=== PATIENT | male | born 1970 | race Caucasian/White ===

== ENCOUNTER 2018-06-16 06:11 | Emergency (ER) | payer SELFPAY ==
[2018-06-16 06:14] VITALS: BP 129/79; PULSE 85; RESP 16; TEMP 37; O2SAT 97
--- NOTE | 2018-06-16 06:31 | ED.GENADUL_ITS ---
Discharge Plan Disposition Patient Disposition: HOME Condition: Good Discharge Details Chief Complaint: RespSymp Clinical Impression: Viral URI Primary Care Provider: None,None ED Provider: Yuri Contreras Home Meds and New Rx's Prescriptions: New benzonatate [Tessalon Perles] 100 mg capsule 100 mg PO TID PRN (Reason: cough) Qty: 30 RF: 0 loratadine 10 mg capsule 10 mg PO DAILY Qty: 10 RF: 0 No Action ibuprofen 600 MG tablet 600 mg PO Q6H PRN (Reason: Pain) Qty: 15 RF: 0 Discharge Instructions Instructions: Upper Respiratory Infection (ED) Additional Instructions: If you notice any worsening of your symptoms, or any new symptoms such as vomiting, diarrhea, fever, chills, shortness of breath, chest pain, numbness, weakness, or fainting , please return immediately to the emergency department for reevaluation. Please follow up with your primary care provider as soon as possible for reassessment and reevaluation. As always, it was a pleasure participating in your medical care today. Stand Alone Forms: Work Release Medical Decision Making This is a pleasant 48-year-old male who presents with 1 day of mild cough, congestion, and runny nose. He has no fever or chills. Physical exam demonstrates no signs of significant pneumonia, no hypoxemia, no respiratory crackles. Lung sounds are encouraging, vital signs are reassuring. No clinical evidence of meningitis or other significant abnormality. With no signs of sign ificant or concerning illness, I feel that the patient most likely has mild viral upper respiratory infection. A long discussion with him regarding the importance of smoking cessation. We discussed red flags for which to return, the importance of fluids, Tylenol Motrin, to be taken as needed. I have extensively reviewed the treatment plan and discharge instructions with the patient. I have addressed all patient concerns at this time. The patient was made aware of what symptoms to monitor for that would warrant a return to the emergency department. Discussed the plan with the patient, they demonstrate verbal understanding and agreement with our assessment and plan at this time. HPI General Date/Time Provider Initiated Documentation: 06/16/18 06:22 . HPI Narrative: This is a 48-year-old male who presents for 1 day of cough, runny nose, congestion. The patient smokes 18 cigarettes/day. He has been doing so for quite some time. Patient's symptoms began yesterday, he denies any fever, chills, vomiting, diarrhea, chest pain or shortness of breath. He denies any other complaints, or modifying factors. He denies any other sick contacts. Related Data Home Medications Medication Instructions Recorded Confirmed ibuprofen 600 mg PO Q6H PRN #15 tablet 12/02/16 06/16/18 benzonatate [Tessalon Perles] 100 mg PO TID PRN #30 cap 06/16/18 loratadine 10 mg PO DAILY #10 cap 06/16/18 Previous Rx's Medication Instructions Recorded ibuprofen 600 mg PO Q6H PRN #15 tablet 12/02/16 benzonatate [Tessalon Perles] 100 mg PO TID PRN #30 cap 06/16/18 loratadine 10 mg PO DAILY #10 cap 06/16/18 Allergies Allergy/AdvReac Type Severity Reaction Status Date / Time Penicillins Allergy Severe Unverified 06/16/18 06:18 vinegar Allergy Severe hives/nause Uncoded 06/16/18 06:18 a General Stated Complaint: RespSymp RADHA: 4 Review of Systems Review of Systems All systems reviewed & are unremarkable except as noted in HPI and below PFSH Social History Smoking and Tabacco status: Current every day Exam Narrative Exam Narrative: 1.Const: Well-nourished, Well-developed, appearing stated age 2.Eyes: PERRL, no conjunctival injection, and symmetrical lids. 3.ENT: Atraumatic external nose and ears. Moist MM. Neck: Symmetric, trachea midline, No thyromegaly. No significant erythema in the posterior oropharynx. Patient demonstrates good movement of cervical neck. There is no nuchal rigidity, no nuchal tenderness. Patient is able to flex the neck without any difficulty or significant pain. Negative Kernig's and Brudzinski sign. 4.CVS: +S1/S2, No murmurs or gallops. Peripheral pulses 2+ and equal in all extremities. Brisk capillary refill in all extremities. 5.RESP: Unlabored respiratory effort. Clear to auscultation bilaterally. No wheezes rales or rhonchi 6.GI: Soft, Nontender/Nondistended, No hepatosplenomegaly. No guarding or rebound. 7.MSK: Normocephalic/Atraumatic, Extremities w/o deformity or ttp No cyanosis or clubbing, Normal movement of all extremities 8.Skin: Warm, Dry. No rashes or lesions. 9.Neuro: brick burner II-XII grossly intact. Sensation grossly intact, no focal neurologic deficits. 10.Psych: (AAO) x3. Appropriate mood and affect Course Vital Signs Temperature 37.0 C 06/16/18 06:14 Pulse 85 06/16/18 06:14 Respiratory Rate 16 06/16/18 06:14 Blood Pressure 129/79 06/16/18 06:14 Pulse Oximetry 97 06/16/18 06:14 Temperature 37.0 C 06/16/18 06:14 Temperature Source Skin 06/16/18 06:14 Pulse 85 06/16/18 06:14 Respiratory Rate 16 06/16/18 06:14 Respiratory Effort Non-Labored 06/16/18 06:19 Blood Pressure 129/79 06/16/18 06:14 Pulse Oximetry 97 06/16/18 06:14 Pain Level 4 06/16/18 06:14
== END 2018-06-16 06:37 | disposition home or self-care (01) ==
LOC: ER 06:42
PROVIDERS: Emergency Provider Student in an Organized Health Care Education/Training Program
DX: J06.9 Acute upper respiratory infection, unspecified (principal); F17.210 Nicotine dependence, cigarettes, uncomplicated
CPT/HCPCS: 99283

== ENCOUNTER 2018-11-11 19:52 | Emergency (ER) | payer SELFPAY ==
[2018-11-11 19:58] VITALS: BP 104/70; PULSE 82; RESP 18; TEMP 36.9; O2SAT 98
--- NOTE | 2018-11-11 20:01 | W.ED.GENAD ---
Discharge Plan Disposition Patient Disposition: HOME Condition: Good Discharge Details Chief Complaint: EyeProblem Clinical Impression: Foreign body of left eye Primary Care Provider: None,None ED Provider: David Cox [place] Meds and New Rx's Prescriptions: New erythromycin 5 mg/gram (0.5 %) ointment 0.5 inch OP QID Qty: 3.5 RF: 0 Discharge Instructions Instructions: Eye Foreign Body (ED) Additional Instructions: Most of the metallic foreign body and rust ring has been removed. There is minimal residual rust ring. Please use antibiotic ointment as directed 4 times a day. [facility] or Friday before the weekend. Return to ED if you develop increasing eye pain, decreased vision, increased periorbital swelling. Referrals: [facility] [Outside] Discharge Data Discharge Date/Time-TO BE ENTERED AT DEPARTURE: 11/11/18 20:43 Medical Decision Making Small piece of metal seen just below the pupil with small rust ring present. Eye anesthetized with tetracaine. With use of slit lamp I was able to remove the foreign body as well as the majority of rest ring with cotton Q-tip. Patient tolerated well. Tetanus is up-to-date. Erythromycin ointment 4 times a day prescribed with first dose being placed here. Refer to [facility] for follow-up tomorrow or Friday before the weekend for recheck. Return to ED if increased eye pain, swelling, decrease in vision. HPI General Mode of arrival: ambulatory. Date/Time Provider Initiated Documentation: 11/11/18 20:01. Limitations to Documentation: no limitations. Information obtained by: patient. HPI Narrative: Patient presents to ED with complaint of left eye foreign body. 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 However, at times when he takes the goggles off, metal dust from his hair or the goggles themself sometimes gets into his eye. He does not specifically recall getting a foreign body today. Since this afternoon, he has had left eye foreign body sensation. He has no real eye pain. He has no change in vision. Related Data Home Medications Medication Instructions Recorded Confirmed erythromycin 0.5 inch OP QID #3.5 gm 11/11/18 Previous Rx's Medication Instructions Recorded erythromycin 0.5 inch OP QID #3.5 gm 11/11/18 Allergies Allergy/AdvReac Type Severity Reaction Status Date / Time Penicillins Allergy Severe Unverified 11/11/18 20:01 vinegar Allergy Severe hives/nause Uncoded 11/11/18 20:01 a General RADHA: 4 Review of Systems Eyes Denies blurry vision, Denies change in vision, Reports irritation and Denies eye pain PFSH Social History Smoking/Tobacco Use Status: Current every day Drug use: Occasionally Do you feel safe in your relationship?: Yes Exam Const General: cooperative, comfortable and no acute distress Orientation: alert and oriented x3 HENMT Head: normocephalic and atraumatic Face and sinus: normal facial exam Eyes Periorbital: periorbital findings normal Eyelids: eyelids normal Conjunctivae: conjunctival abnormality left conjunctival injection; without chemosis Sclera: sclerae normal Cornea: corneas abnormal on the left foreign body (just beyond the pupil at 5 - 6 o'clock position) metallic and with rust ring present Pupils: PERRL EOM: EOM intact bilaterally Other: 20/20 VA corrected both eyes. Procedures FB Removal Eye Location: eye (L) Topical anesthetic used: tetracaine Foreign body: metal Evidence of corneal penetration: No Technique: cotton tip swab Procedure performed under: slit-lamp Post-procedure medication: ophthalmic antibiotic Patient tolerated procedure: well Complications: residual rust ring
[2018-11-11] MEDS: Tetracaine 0.5% 4 ML BTL OP (20:08)
[2018-11-11] MEDS: Erythromycin Ophth Oint 3.5 GM TUBE OS (20:40)
== END 2018-11-11 20:43 | disposition home or self-care (01) ==
PROVIDERS: Emergency Provider Emergency Medicine
DX: T15.92XA Foreign body on external eye, part unspecified, left eye, initial encounter (principal); Y99.0 Civilian activity done for income or pay
CPT/HCPCS: 65222

== ENCOUNTER 2019-05-09 14:38 | Emergency (ER) | payer OTHER, SELFPAY ==
[2019-05-09 14:40] VITALS: BP 130/71; PULSE 87; TEMP 36.6; O2SAT 98
--- NOTE | 2019-05-09 14:52 | W.ED.GENAD ---
Discharge Plan Disposition Patient Disposition: HOME Condition: Improving Discharge Details Chief Complaint: RespSymp Clinical Impression: Pneumonia involving right lung Primary Care Provider: None,None ED Provider: Jay King Home Meds and New Rx's Prescriptions: New levofloxacin [Levaquin] 750 mg tablet 750 mg PO DAILY Qty: 7 RF: 0 Continued naproxen 250 mg Tablet 500 mg PO PRN PRNRF: 0 ibuprofen 200 mg Tablet 200 mg PO PRN PRNRF: 0 Discharge Instructions Instructions: Pneumonia (ED) Additional Instructions: Home to rest today. Small, frequent sips of fluids to maintain hydration. May use Tylenol as needed for aches, pains, fever. Take antibiotics as prescribed, the next dose will be tomorrow morning. Return to the emergency department for any acute concerns. You may use the provided albuterol inhaler 2 puffs every 4 hours as needed during times of illness. Medical Decision Making 49-year-old male smoker presents with 10 days of cough, congestion, minimal production of sputum. He has otherwise recently been well and denies other significant positives on review of systems. He is afebrile, oxygenating normally, his exam reveals diminished breath sounds throughout but no significant wheezing and no rhonchi appreciated. Patient referred for chest x-ray which does reveal a right infrahilar infiltrate. Patient is improved following administration of single albuterol inhaler. Will provide this for him for home during times of illness. I will treat him with a course of Augmentin. He stable and improving. HPI General Mode of arrival: ambulatory. Date/Time Provider Initiated Documentation: 05/09/19 14:45. Limitations to Documentation: no limitations. Information obtained by: patient. History of Present Illness 49 year old M presents to the emergency department with the chief complaint of Cough, congestion for 10 days, Quality is described as dull and constant, and is localized to the chest. Patient reports no radiation. Patient started experiencing this day(s) and it has been constant. No relieving factors improve symptom(s), Other factors that worsen symptoms (Smoking) . Patient notes cough and other (Production of sputum). Patient did receive the following treatments prior to arrival, none Related Data Home Medications Medication Instructions Recorded Confirmed ibuprofen 200 mg PO PRN PRN 05/09/19 05/09/19 levofloxacin [Levaquin] 750 mg PO DAILY #7 tab 05/09/19 naproxen 500 mg PO PRN PRN 05/09/19 05/09/19 Previous Rx's Medication Instructions Recorded levofloxacin [Levaquin] 750 mg PO DAILY #7 tab 05/09/19 Allergies Allergy/AdvReac Type Severity Reaction Status Date / Time Penicillins Allergy Severe Unverified 05/09/19 14:43 vinegar Allergy Severe hives/nause Uncoded 05/09/19 14:43 a General Stated Complaint: RespSymp RADHA: 3 Review of Systems Narrative: 6 systems reviewed and otherwise negative. No shortness of breath. [facility] Social History Smoking/Tobacco Use Status: Current every day Alcohol Intake: former Drug use: Occasionally Substance use type: marijuana Do you feel safe at home: Yes Do you feel safe in your relationship?: Yes Exam Narrative Exam Narrative: GEN: awake, alert, oriented 3. Pleasant, well groomed, interactive. HEAD: Normocephalic, atraumatic ENT: Mucous membranes moist, oropharynx unremarkable, External ear exam unremarkable EYES: PERRL, EOMI NECK: Full ROM, no SHERRY, no menigismus CHEST/RESP: Diminished, cough noted, nontender, clear to auscultation bilateral, no wheeze/rhonchi/rales CARDIOVASCULAR: RRR, no murmur, rub laci. 2+ Rad pulse bilateral ABDOMEN: Soft, nontender, no mass. +Bowel sounds EXT: Full ROM, no edema, no rash Neuro: Grossly normal neurologic exam, conversant, interactive. Psych: Speech fluent, thoughts congruent, affect normal Course Vital Signs Vital signs: Vital Signs Temperature 36.6 C 05/09/19 14:40 Pulse 87 05/09/19 14:40 Blood Pressure 130/71 05/09/19 14:40 Pulse Oximetry 98 05/09/19 14:40 Temperature 36.6 C 05/09/19 14:40 Temperature Source Skin 05/09/19 14:40 Pulse 87 05/09/19 14:40 Blood Pressure 130/71 05/09/19 14:40 Blood Pressure Position Sitting 05/09/19 14:40 Pulse Oximetry 98 05/09/19 14:40 Oxygen Delivery Method Room Air 05/09/19 14:40 Oxygen Flow Rate 0 05/09/19 14:40 Pain Level 2 05/09/19 14:40
[2019-05-09] MEDS: Albuterol HFA 8 GM 60 PUFF INH IH (15:00)
--- NOTE | 2019-05-09 16:03 | DI.RAD_ITS ---
EXAM: XR CHEST 2V PA LATERAL CLINICAL HISTORY: 10 days cough, smoker TECHNIQUE: COMPARISON: CHEST 2 VIEWS PA,LAT from 12/28/2014 FINDINGS: The heart is not enlarged. There are patchy bilateral areas of increased intrapulmonary radiodensity suggesting patchy consolidation. The findings are probably acute although chronic process is not ex cluded, most recent prior chest was December 2014 and these findings are not present on the prior ex amination. No pleural effusion seen. IMPRESSION: Probable multifocal patchy pneumonia. Follow-up PA and lateral chest film requested following treatm ent.
--- NOTE | 2019-05-09 16:25 | DI.VRAD_ITS ---
PROCEDURE INFORMATION: Exam: XR Chest, 2 Views Exam date and time: 05/09/2019 3:25 PM Age: 49 years old Clinical indication: Patient HX: 10 days cough, smoker TECHNIQUE: Imaging protocol: XR of the chest Views: 2 views. COMPARISON: CR CHEST 2 VIEWS PA,LAT 12/28/2014 10:06 AM FINDINGS: Lungs: Increased interstitial lung markings suggesting edema, infection or fibrotic changes. Right infrahilar infiltrate. Pleural space: Unremarkable. No pleural effusion. No pneumothorax. Heart/Mediastinum: Unremarkable. No cardiomegaly. Bones/joints: Unremarkable. IMPRESSION: Increased interstitial lung markings suggesting edema, infection or fibrotic changes. Right infrahilar infiltrate. Pneumonia is not excluded. Dictated and Authenticated by: Roslyn Montes MD. Ordering:NIDIA Thompson MD
[2019-05-09 16:51] VITALS: BP 110/71; PULSE 83; RESP 20; TEMP 37; O2SAT 97
[2019-05-09] MEDS: levoFLOXacin 500 MG, levoFLOXacin 250 MG 750 MG PO (16:51)
== END 2019-05-09 17:17 | disposition home or self-care (01) ==
PROVIDERS: Emergency Provider Emergency Medicine
DX: J18.9 Pneumonia, unspecified organism (principal)
CPT/HCPCS: 99284; 71046; 99283

== ENCOUNTER 2020-12-06 09:31 | Emergency (ER) | payer SELFPAY ==
[2020-12-06 09:56] VITALS: BP 133/79; PULSE 78; RESP 16; TEMP 36.7; O2SAT 98
--- NOTE | 2020-12-06 10:45 | W.ED.GENAD ---
Discharge Plan Disposition Patient Disposition: HOME Condition: Good Discharge Details Clinical Impression: Eye foreign body Primary Care Provider: None,None ED Provider: Jennifer Carpenter Home Meds and New Rx's Prescriptions: New erythromycin 5 mg/gram (0.5 %) ointment 0.5 inch ophthalmic (eye) TID Qty: 3.5 RF: 0 Continued naproxen 250 mg Tablet 500 mg PO PRN PRNRF: 0 ibuprofen 200 mg Tablet 200 mg PO PRN PRNRF: 0 levofloxacin [Levaquin] 750 mg tablet 750 mg PO DAILY Qty: 7 RF: 0 Discharge Instructions Instructions: Eye Foreign Body (ED) Additional Instructions: Please follow-up with [facility] tomorrow Use erythromycin ointment as instructed 3 times a day You may take ibuprofen or Tylenol for pain for light sensitivity wear glasses when outside Stand Alone Forms: Work Release Discharge Data Discharge Date/Time-TO BE ENTERED AT DEPARTURE: 12/06/20 10:54 Medical Decision Making Patient appears well, he is alert and oriented I did use either here in the of rust ring in place the patient on erythromycin, I removed a piece of metal from patient's eye His visual acuity was further reviewed and within normal limits He was discharged home in stable condition with stable vitals He is placed on referral list for [facility] reassessment within 24 to 48 hours Is given low threshold to return study new or worsening complaints HPI General Date/Time Provider Initiated Documentation: 12/06/20 09:34. Limitations to Documentation: no limitations. Information obtained by: patient. HPI Narrative: This pleasant 50-year-old gentleman who is otherwise healthy presents with report of right thigh pain. 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 He states that he did not injure himself at work yesterday. States when he arrived home he noticed that his eye was irritated. This morning he had persistent symptoms which is why he presents. He states his tetanus up-to-date. He states that he has had some tearing to the affected eye but denies any change in his vision. He states that when he blinks his pain is worsened. He does not wear contacts. He does wear glasses. Related Data Home Medications Medication Instructions Recorded Confirmed ibuprofen 200 mg PO PRN PRN 05/09/19 05/09/19 levofloxacin [Levaquin] 750 mg PO DAILY #7 tab 05/09/19 naproxen 500 mg PO PRN PRN 05/09/19 05/09/19 erythromycin 0.5 inch OPHTHALMIC (EYE) TID #3.5 12/06/20 g Previous Rx's Medication Instructions Recorded levofloxacin [Levaquin] 750 mg PO DAILY #7 tab 05/09/19 erythromycin 0.5 inch OPHTHALMIC (EYE) TID #3.5 12/06/20 g Allergies Allergy/AdvReac Type Severity Reaction Status Date / Time Penicillins Allergy Severe Unverified 05/09/19 14:43 vinegar Allergy Severe hives/nause Uncoded 05/09/19 14:43 a General Stated Complaint: EyeProblem RADHA: 4 Review of Systems Narrative: Review of systems obtained x3 and negative aside from where indicated in HPI [facility] Social History Smoking/Tobacco Use Status: Current every day Smoking risk assessment performed?: Yes Alcohol Intake: former Drug use: Occasionally Substance use type: marijuana Do you feel safe at home: Yes Do you feel safe in your relationship?: Yes Exam Const General: cooperative and comfortable Eyes Other: Right eye with redness and burning, foreign body noted to the 3 o'clock position of her iris, lids everted with no foreign body Neuro General: patient alert and patient oriented x3 Course Vital Signs Vital signs: Vital Signs Temperature 36.7 C 12/06/20 09:56 Pulse 78 12/06/20 09:56 Respiratory Rate 16 12/06/20 09:56 Blood Pressure 133/79 12/06/20 09:56 Pulse Oximetry 98 12/06/20 09:56 Temperature 36.7 C 12/06/20 09:56 Temperature Source Temporal Artery Scan 12/06/20 09:56 Pulse 78 12/06/20 09:56 Respiratory Rate 16 12/06/20 09:56 Respiratory Effort Non-Labored 12/06/20 09:59 Blood Pressure 133/79 12/06/20 09:56 Blood Pressure Position Supine 12/06/20 09:56 Pulse Oximetry 98 12/06/20 09:56 Oxygen Delivery Method Room Air 12/06/20 09:56 Oxygen Flow Rate 0 12/06/20 09:56 Pain Level 5 12/06/20 09:56
--- NOTE | 2020-12-06 10:50 | NUR.NOTE ---
pt referral sent to [facility]
[2020-12-06 10:53] VITALS: TEMP 36.8
== END 2020-12-06 10:54 | disposition home or self-care (01) ==
PROVIDERS: Emergency Provider Physician Assistant
DX: S05.51XA Penetrating wound with foreign body of right eyeball, initial encounter (principal); X58.XXXA Exposure to other specified factors, initial encounter
CPT/HCPCS: 99284; 99283

== ENCOUNTER 2021-01-12 20:05 | Emergency (ER) | payer SELFPAY ==
[2021-01-12 21:24] VITALS: BP 145/97; PULSE 89; RESP 16; TEMP 36.9; O2SAT 98
[2021-01-12] MEDS: Balanced Salt Solution 15 ML BTL OP (21:40)
[2021-01-12] MEDS: Erythromycin Ophth Oint 3.5 GM TUBE OP (21:41)
--- NOTE | 2021-01-12 21:53 | ED.GENADUL_ITS ---
Discharge Plan Disposition Patient Disposition: HOME Condition: Improving Discharge Details Clinical Impression: Abrasion of cornea, right, Corneal rust ring of right eye Primary Care Provider: None,None ED Provider: Jay King Home Meds and New Rx's Prescriptions: No Action No Known Home Meds RF: 0 Discharge Instructions Instructions: Corneal Abrasion (ED) Additional Instructions: May use the provided oxycodone as needed for severe or breakthrough pain. No alcohol or driving with this medication. You may also use Tylenol and/or ibuprofen as needed for pain. We will ask care management to arrange follow-up for you at [facility]. As it is Friday, I will have the fax chart tonight and we will ask you to be seen Friday morning. Erythromycin ointment to right 4-5 times daily. Keep eye closed and may use a cool compress as needed for comfort. Return to the ER for any acute concerns in the interim. 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 He liberally irrigated the eye and then developed progressive discomfort over the course of the day. He arrives with 20/25 vision OU, OD, OS. His slit-lamp examination reveals right corneal foreign object outside the axis of vision on the right inferotemporal aspect. I removed part of the foreign body with sweeping a beveled 27-gauge needle. There is residual rust ring. We will asked the patient follow-up with [facility]. He will be provided with analgesia and erythromycin ointment. HPI General Mode of arrival: ambulatory . Date/Time Provider Initiated Documentation: 01/12/21 21:33 . Limitations to Documentation: no limitations . Information obtained by: patient . History of Present Illness 50 year old M presents to the emergency department with the chief complaint of R eye FB sensation, discomfort, described as moderate, and is localized to the eyes and right. Patient reports no radiation. Patient started experiencing this hour(s) and it has been constant. No relieving factors improve symptom(s), No exacerbating factors reported . Patient did receive the following treatments prior to arrival, other (irrigation) Related Data Home Medications Medication Instructions Recorded Confirmed Unknown [No Known Home Meds] 01/12/21 01/12/21 Allergies Allergy/AdvReac Type Severity Reaction Status Date / Time Penicillins Allergy Severe Unverified 01/12/21 21:28 vinegar Allergy Severe hives/nause Uncoded 01/12/21 21:28 a General Stated Complaint: EyeProblem RADHA: 4 Review of Systems Narrative: No other injury, no change to vision. COUNTS INCLUDE 234 BEDS AT THE [facility] Social History Smoking/Tobacco Use Status: Current every day Tobacco Type: cigarettes Smoking risk assessment performed?: Yes Alcohol Intake: former Drug use: Occasionally Substance use type: marijuana Do you feel safe at home: Yes Do you feel safe in your relationship?: Yes Exam Narrative Exam Narrative: GEN: awake, alert, oriented 3. Pleasant, well groomed, interactive. HEAD: Normocephalic, atraumatic ENT: Mucous membranes moist, , External ear exam unremarkable EYES: PERRL, EOMI, right eye injected, right eye with right inferior, slightly lateral metallic foreign body with slight rust ring inferior to the axis of vision. Negative Noris sign Neuro: Grossly normal neurologic exam, conversant, interactive. Psych: Speech fluent, thoughts congruent, affect normal Course Vital Signs Vital signs: Vital Signs Temperature 36.9 C 01/12/21 21:24 Pulse 89 01/12/21 21:24 Respiratory Rate 16 01/12/21 21:24 Blood Pressure 145/97 H 01/12/21 21:24 Pulse Oximetry 98 01/12/21 21:24 Temperature 36.9 C 01/12/21 21:24 Temperature Source Temporal Artery Scan 01/12/21 21:24 Pulse 89 01/12/21 21:24 Respiratory Rate 16 01/12/21 21:24 Respiratory Effort Non-Labored 01/12/21 21:30 Blood Pressure 145/97 H 01/12/21 21:24 Blood Pressure Position Sitting 01/12/21 21:24 Pulse Oximetry 98 01/12/21 21:24 Oxygen Delivery Method Room Air 01/12/21 21:24 Oxygen Flow Rate 0 01/12/21 21:24 Pain Level 7 01/12/21 21:24
[2021-01-12] MEDS: Tetracaine 0.5% 4 ML BTL OP (22:01)
[2021-01-12] MEDS: Fluorescein STRIPS 100/BOX 1 MG OP (22:02)
--- NOTE | 2021-01-12 22:40 | NUR.NOTE ---
Nursing Note: i faxed the care management referral for a fb in the right eye to [facility] sushila adam
--- NOTE | 2021-01-15 11:15 | PDOC.ERCMPRO ---
- If Service Date Differs Date of service: 01/15/21 Time of Service: 11:15 Care Management Progress Note Jr is seen in the ED for an abrasion of the cornea. At the request of ED provider, JYOTHI coordinates a referral to [facility] to assist Jr in obtaining a follow up appointment. JYOTHI speaks with a customer service receptionist at [facility] this morning and they will outreach to patient directly to schedule a follow up appointment.
== END 2021-01-12 22:52 | disposition home or self-care (01) ==
PROVIDERS: Emergency Provider Emergency Medicine
DX: T15.01XA Foreign body in cornea, right eye, initial encounter (principal); W45.8XXA Other foreign body or object entering through skin, initial encounter; Y99.0 Civilian activity done for income or pay
CPT/HCPCS: 99283

== ENCOUNTER 2021-12-19 02:36 | Outpatient (CLI) | payer BC, SELFPAY ==
[2021-12-19 17:18] LABS: ALT 32 U/L (16-63); AST 18 U/L (15-37); Albumin 3.5 g/dL (3.4-5.0); Alkaline Phosphatase 120 U/L (46-116); Anion Gap 10.2 mmol/L (3-11); BUN 18 mg/dL (7-18); Bilirubin, Total 0.3 mg/dL (0.2-1.0); CO2 24.8 mmol/L (21.0-32.0); CREATININE 1.1 mg/dL (0.70-1.30); Calcium 8.9 mg/dL (8.5-10.1); Calculated LDL 131 mg/dL (<100); Chloride 101 mmol/L (98-107); Cholesterol 182 mg/dL (<200); Estimated GFR 82.29 (mL/min/1.73m2); Glucose 91 mg/dL (74-106); HDL Cholesterol 28 mg/dL (40-60); Potassium 3.8 mmol/L (3.5-5.1); Sodium 136 mmol/L (136-145); Total Protein 7.7 g/dL (6.4-8.2); Triglyceride 116 mg/dL (<150)
[2021-12-19 17:21] LABS: Iron 137 ug/dL (65-175); Total Iron Binding Capacity 303 ug/dL (250-450); Transferrin Sat 45 % (20-55)
== END 2021-12-19 02:37 | disposition home or self-care (01) ==
LOC: LBO 02:36
PROVIDERS: PCP Family Medicine; Visit Provider Family Medicine
DX: G25.81 Restless legs syndrome (principal); Z13.220 Encounter for screening for lipoid disorders
CPT/HCPCS: 36415; 80053; 80061; 83540; 83550

== ENCOUNTER 2022-08-12 10:59 | Observation (INO) | payer BC, SELFPAY ==
[2022-08-12] VITALS (9 sets, daily range): BP systolic 102–130; BP diastolic 65–81; PULSE 96–104; RESP 8–20; TEMP 36.5–37.3; O2SAT 87–100
--- NOTE | 2022-08-12 11:15 | DI.RAD_ITS ---
Exam(s) XR PORTABLE CHEST AP EXAM: XR PORTABLE CHEST AP CLINICAL HISTORY: cough TECHNIQUE: 2D digital imaging was performed of the chest. One image was obtained. An AP view was ob tained. COMPARISON: CR,XR XR CHEST 2V PA LATERAL from 05/09/2019 FINDINGS: There is poor inspiration. MEDIASTINUM: Normal. HEART: Normal. PULMONARY VASCULATURE: Normal. LUNGS: There are bilateral basilar infiltrates, left greater than right. PLEURAL SPACE: No pleural effusion or pneumothorax. BONE:Within normal limits for the patient's age. OTHER FINDINGS:Normal. IMPRESSION: Bilateral basilar infiltrates, left greater than right. This may represent pneumonia. Please correl ate clinically. DATA REPOSITORY: RADIATION DOSE DELIVERED:
--- NOTE | 2022-08-12 11:15 | RT.EKG_ITS ---
APPROVED REPORT Exam: Resting ECG Reason for Exam: shortness of breath Patient Location: E HR:96 bpm ECG Measurements Heart Rate 96 AXIS LA 173 P 49 QRSd 89 QRS 51 QT 350 T 40 QTc 442 Conclusion Sinus rhythm...normal P axis, V-rate 60- 99 Probable left atrial enlargement...P >50mS, <-0.10mV V1 artifact v6, no stemi
--- NOTE | 2022-08-12 11:18 | ED.GENADUL_ITS ---
Discharge Plan Disposition Patient Disposition: Admit to [facility] Condition: Poor Discharge Details Chief Complaint: RespSymp Clinical Impression: CAP (community acquired pneumonia), Respiratory failure with hypoxia, Shortness of breath Primary Care Provider: Kenney Saleh ED Provider: Ajay Sullivan Home Meds and New Rx's Prescriptions: No Action calcium carbonate [Tums] 200 mg calcium (500 mg) tablet,chewable 200 mg PO BID PRN Patient Comments: No longer taking 08/12/22 CT Medical Decision Making 52 yo male who has no significant pmhx who is a chronic smoker, who comes in with cough and shortness of breath since Friday morning without fevers. Denies any chest pain. Has had subjective fatigue/general malaise as well. He denies history of copd but has used inhalers in the past. He arrives with o2 sat on room air of 85%, has apical wheezing bilaterally and diminished breath sounds at the bases bilaterally. He has no jvd or leg swelling on exam. I suspect he has undiagnosed copd given his chronic smoking and lung exam findings, will treat with neb and steroids and reassess. Will also obtian ecg/troponin, cbc, cmp, probnp, and d dimer. HE has no evidence of dvt on exam. will obtain cxr to evaluate for infiltrate. labs show wbc of 12 otherwise benign, d dimer 503 which utilizing years algorithm for pe is negative, negative troponin and fluvid, xray does show bilateral pneumonia. He has better air movement on exam, wheezing in the lower lobes on exam now, speaking in full sentences. He is still requiring 2-3 L NC which is new for him. He has anaphylaxis to pcn so levofloxacin ordered, discussed with hospitalist who accepts for admission Differential Diagnosis Differential Diagnosis: copd, pneumonia, pe HPI General Mode of arrival: ambulatory . Date/Time Provider Initiated Documentation: 08/12/22 11:01 . Limitations to Documentation: no limitations . Information obtained by: patient . History of Present Illness 52 year old M presents to the emergency department with the chief complaint of cough, described as moderate, Patient started experiencing this day(s) (2) and it has been intermittent. Rest improves symptom(s), Movement worsens symptoms . Patient notes cough and shortness of breath; denies chest pain and fever/chills. Patient did receive the following treatments prior to arrival, none Related Data Home Medications Medication Instructions Recorded Confirmed calcium carbonate 200 mg calcium 200 mg PO BID PRN 11/09/21 (500 mg) chewable tablet (Tums) Allergies Allergy/AdvReac Type Severity Reaction Status Date / Time Penicillins Allergy Severe Anaphylaxis Unverified 08/12/22 11:06 vinegar Allergy Severe hives/nause Uncoded 08/12/22 11:06 a General Stated Complaint: RespSymp RADHA: 3 Review of Systems All systems reviewed & are unremarkable except as noted in HPI and below Constitutional Constitutional: Denies chills and Denies fever(s) Cardiovascular Cardiovascular: Denies chest pain and Reports dyspnea Respiratory Respiratory: Reports cough and Reports dyspnea Gastrointestinal Gastrointestinal: Denies abdominal pain, Denies nausea and Denies vomiting Genitourinary Genitourinary: Denies dysuria Integumentary/Breasts Skin/Breast: Denies rash PFSH All Active Problems (Updated 08/12/22 @ 13:04 by Ajay Sullivan MD) CAP (community acquired pneumonia) (Acute) Respiratory failure with hypoxia (Acute) Shortness of breath (Acute) GERD (gastroesophageal reflux disease) (Chronic) Restless leg syndrome (Acute) Tobacco use disorder (Chronic) Started at age 18, 1/2 ppd Medical History (Updated 08/12/22 @ 13:04 by Aajy Sullivan MD) Abrasion of cornea, right Corneal rust ring of right eye Eye foreign body Family History (Updated 11/06/21 @ 15:04 by Bibi Rios) Mother Depression Diabetes Hypertension Maternal Grandfather Diabetes Hypertension Paternal Grandfather Heart disease Hypertension Maternal Grandmother Heart disease Hypertension Paternal Grandmother Hypertension Father Hypertension Social History (Updated 11/06/21 @ 15:02 by Bibi Rios) Smoking/Tobacco Use Status: Current every day Tobacco Type: cigarettes Smoking risk assessment performed?: Yes Alcohol Intake: former Drug use: Never Substance use type: does not use Adopted: No Caregiver/Support person: No Foster care: No Household members: family Housing: apartment Number of Children: 5 number of grandchildren: 4 Communication Needs: Corrective Lenses Do you need help understanding health information?: Never Pets and animals: Yes Pets and animals: dog(s) and bird(s) Sexually active: Yes Do you think of yourself as: straight/heterosexual Current gender identity: male How often do you talk on the phone with friends or family?: twice per week How often do you get together with friends or relatives?: twice per week Do you belong to any clubs or organized social groups?: no Panel score (0-1 are the most socially isolated patients): 1 Rima/Zoroastrian: None Seatbelt use: always Helmet use: No Drive intox or ride w/intox regional intermodal truck driver: No Do you feel safe at home: Yes Do you feel safe in your relationship?: Yes Exam Const General: no acute distress Orientation: alert HENMT Head: normal to inspection Ears: external ears normal General nose exam: external nose normal Mouth: moist mucous membranes Eyes General: appearance normal, both eyes and all related structures Neck Neck: normal visual inspection Resp Auscultation: diminished lung sounds and wheezes Cardio Jugular venous pressure: no JVD Rate: regular rate Heart Sounds: no murmurs Skin General skin exam: no rashes or lesions noted Neuro General: patient alert and patient oriented x3 Extrem General: normal to inspection Psych Mental Status: mental status grossly normal Course Vital Signs Vital signs: Vital Signs Temperature 36.5 C 08/12/22 11:02 Pulse 103 H 08/12/22 11:02 Respiratory Rate 20 08/12/22 11:02 Blood Pressure 102/65 08/12/22 11:02 Pulse Oximetry 87 L 08/12/22 11:02 Temperature 36.5 C 08/12/22 11:02 Pulse 103 H 08/12/22 11:02 Respiratory Rate 20 08/12/22 11:02 Respiratory Effort Short of Breath, Labored 08/12/22 11:13 Respiratory Depth Normal 08/12/22 11:13 Blood Pressure 102/65 08/12/22 11:02 Blood Pressure Position Sitting 08/12/22 11:02 Pulse Oximetry 87 L 08/12/22 11:02 Oxygen Delivery Method Room Air 08/12/22 11:02 Oxygen Flow Rate 0 08/12/22 11:02 Pain Level 8 08/12/22 11:02
[2022-08-12 11:39] LABS: BE (Venous) -1 mmol/L (-2-3); HCO3 (Venous) 24 mmol/L (23-28); O2 Sat (Venous) 79 %; TCO2 (Venous) 22 mmol/L (24-29); pCO2 (Venous) 39 mmHg (41-51); pO2 (Venous) 42 mmHg
[2022-08-12 11:40] LABS: Abs Immature Grans 0.04 10^3/uL (0.0-0.06); Absolute Basophil Count 0.06 10^3/uL (0.0-0.2); Absolute Eosinophil Count 0.11 10^3/uL (0.0-0.7); Absolute Lymphocyte Count 2.15 10^3/uL (1.2-3.4); Absolute Monocyte Count 0.79 10^3/uL (0.1-0.8); Absolute Neutrophil Count 9.36 10^3/uL (1.2-6.7); Basophils % 0.5; Eosinophils % 0.9; HCT 43.3 % (40.0-50.0); Immature Grans % 0.3; Lymphocytes % 17.2; MCH 30.9 pg (27.0-33.0); MCHC 34.6 % (32.0-36.0); MCV 89 fL (80-95); MPV 8.9 fL (8.0-11.0); Monocytes % 6.3; Neutrophils % 74.8; Platelet Count 342 10^3/uL (130-400); RBC 4.86 10^6/uL (4.36-5.78); RDW 13.6 % (11.8-14.1); RDW-SD 44.7 fL; WBC 12.51 10^3/uL (4.4-10.8)
[2022-08-12] MEDS: Albuterol/Ipratropium 3 ML UPD VIAL UPD ×4 (11:40→23:41)
[2022-08-12] MEDS: methylPREDNISolone SUCC 125 MG VIAL IVP (11:40)
[2022-08-12 12:04] LABS: Magnesium 2.1 mg/dL (1.8-2.4); NT-proBNP 127 pg/mL (<300); Troponin I < 50 ng/L (<or=60)
[2022-08-12 12:11] LABS: D-Dimer 503 ng/mlFEU (<500)
[2022-08-12 12:18] LABS: COVID-19 PCR Negative (Negative); Influenza A PCR Negative (Negative); Influenza B PCR Negative (Negative); RSV PCR Negative (Negative)
[2022-08-12 12:20] LABS: Source Nasopharynx
[2022-08-12 12:35] LABS: ALT 21 U/L (16-63); AST 27 U/L (15-37); Albumin 3.3 g/dL (3.4-5.0); Alkaline Phosphatase 113 U/L (46-116); Anion Gap 8.2 mmol/L (3-11); BUN 21 mg/dL (7-18); Bilirubin, Total 0.5 mg/dL (0.2-1.0); CO2 23.8 mmol/L (21.0-32.0); CREATININE 1.2 mg/dL (0.70-1.30); Calcium 9.2 mg/dL (8.5-10.1); Chloride 102 mmol/L (98-107); Estimated GFR 73.67 (mL/min/1.73m2); Glucose 119 mg/dL (74-106); Potassium 4.2 mmol/L (3.5-5.1); Sodium 134 mmol/L (136-145); Total Protein 7.9 g/dL (6.4-8.2)
[2022-08-12] MEDS: levoFLOXacin 750 MG/150 ML BAG 100 MG IVPB (13:10)
[2022-08-12] MEDS: Benzonatate 200 MG CAP PO ×2 (14:01→20:16)
[2022-08-12] MEDS: Enoxaparin 40 MG/0.4 ML SYR SC (14:02)
[2022-08-12 15:30] LABS: Procalcitonin 0.7 ng/mL
[2022-08-12 16:02] LABS: Troponin I < 50 ng/L (<or=60)
--- NOTE | 2022-08-12 16:08 | HPE_ITS ---
Date of service: 08/12/22 Time of Service: 16:09 Assessment and Plan Assessment and plan (1) CAP (community acquired pneumonia): Status: Acute Assessment and plan: Difficulty breathing, requiring oxygen Levofloxacin IV Acapella Albuterol PRN Duo nebs q6h (2) Respiratory failure with hypoxia: Status: Acute Assessment and plan: see above (3) GERD (gastroesophageal reflux disease): Status: Chronic Assessment and plan: Hx of GERD; Pantoprazole 20 mg orally daily (4) Restless leg syndrome: Status: Acute Assessment and plan: Hx of RLS - Ropinerol @ HS States heating pads help him at night - Aqua kpak ordered for comfort (5) Tobacco use disorder: Status: Chronic Assessment and plan: Smoking cessation; offered NRT; declined (6) DVT prophylaxis: Status: Acute Assessment and plan: Enoxaparin (7) Discharge planning issues: Status: Acute Assessment and plan: Home without services when stable and no longer requiring oxygen Discussed with Dr Lemus History of Present Illness History of Present Illness Chief Complaint: Shortness of breath Narrative: This is a 52 yo male patient who has no significant pmhx who is a chronic smoker, who presented to the [facility] ED with a chief complaint of a cough and shortness of breath since Friday morning,? without fevers.? Patient denied chest pain. He did complain of fatigue and general malaise as well. He denied a history of COPD but has been prescribed and has used inhalers in the past. He arrived in the ED with a room air of 85%, had apical wheezing bilaterally and diminished breath sounds at the bases bilaterally. He had no JVD or leg swelling on exam. Labs showed WBC of 12 otherwise benign, d dimer 503 which utilizing YEARS algorithm for PE is negative, negative troponin and negative fluvid. Chest xray does show bilateral pneumonia. He was speaking in full sentences, however, required 2-3 L oxygen via NC which is new for him. He has anaphylaxis to Penicillin, Levofloxacin was given in the ED.? He was admitted to the medical floor, stable for IV antibiotics, bronchodilators and oxygen. Review of Systems All systems reviewed & are unremarkable except as noted in HPI and below PFSH All Active Problems (Updated 08/12/22 @ 16:40 by Shelbi Fulton NP) Discharge planning issues (Acute) DVT prophylaxis (Acute) CAP (community acquired pneumonia) (Acute) Respiratory failure with hypoxia (Acute) Shortness of breath (Acute) GERD (gastroesophageal reflux disease) (Chronic) Restless leg syndrome (Acute) Tobacco use disorder (Chronic) Started at age 18, 1/2 ppd Medical History (Updated 08/12/22 @ 16:40 by Shelbi Fultno NP) Abrasion of cornea, right Corneal rust ring of right eye Eye foreign body Family History (Updated 11/06/21 @ 15:04 by Bibi Rios) Mother Depression Diabetes Hypertension Maternal Grandfather Diabetes Hypertension Paternal Grandfather Heart disease Hypertension Maternal Grandmother Heart disease Hypertension Paternal Grandmother Hypertension Father Hypertension Social History (Updated 11/06/21 @ 15:02 by Bibi Rios) Smoking/Tobacco Use Status: Current every day Tobacco Type: cigarettes Smoking risk assessment performed?: Yes Alcohol Intake: former Drug use: Never Substance use type: does not use Adopted: No Caregiver/Support person: No Foster care: No Household members: family Housing: apartment Number of Children: 5 number of grandchildren: 4 Communication Needs: Corrective Lenses Do you need help understanding health information?: Never Pets and animals: Yes Pets and animals: dog(s) and bird(s) Sexually active: Yes Do you think of yourself as: straight/heterosexual Current gender identity: male How often do you talk on the phone with friends or family?: twice per week How often do you get together with friends or relatives?: twice per week Do you belong to any clubs or organized social groups?: no Panel score (0-1 are the most socially isolated patients): 1 Rima/Nondenominational: None Seatbelt use: always Helmet use: No Drive intox or ride w/intox funeral car driver: No Do you feel safe at home: Yes Do you feel safe in your relationship?: Yes Meds Allergies and Home Medications Allergies Allergy/AdvReac Type Severity Reaction Status Date / Time Penicillins Allergy Severe Anaphylaxis Unverified 08/12/22 11:06 vinegar Allergy Severe hives/nause Uncoded 08/12/22 11:06 a Home Medications Medication Instructions Recorded Confirmed Type calcium carbonate 200 mg calcium 200 mg PO BID PRN 11/09/21 History (500 mg) chewable tablet (Tums) Exam Narrative Exam Narrative: Awake, alert sitting on the side of the bed eating [employer]; speaking in full sentences Const General: no acute distress Orientation: alert HENMT Head: normal to inspection Ears: external ears normal General nose exam: external nose normal Mouth: moist mucous membranes Eyes General: appearance normal, both eyes and all related structures Neck Neck: normal visual inspection Resp Auscultation: diminished lung sounds and wheezes (bibasilar) expiratory wheezes Cardio Jugular venous pressure: no JVD Rate: regular rate Heart Sounds: no murmurs Skin General skin exam: no rashes or lesions noted Neuro General: patient alert and patient oriented x3 Extrem General: normal to inspection Psych Mental Status: mental status grossly normal Results Labs 08/12/22 11:35 08/12/22 11:35 Labs: Laboratory Results - last 24 hr 08/12/22 08/12/22 08/12/22 11:22 11:35 11:35 WBC 12.51 H RBC 4.86 Hgb 15.0 Hct 43.3 MCV 89 MCH 30.9 MCHC 34.6 RDW 13.6 Plt Count 342 MPV 8.9 Immature Gran % 0.3 Neutrophils % 74.8 Lymphocytes % 17.2 Monocytes % 6.3 Eosinophils % 0.9 Basophils % 0.5 Nucleated RBC % 0.0 Absolute Neutrophils 9.36 H Absolute Lymphocytes 2.15 Absolute Monocytes 0.79 Absolute Eosinophils 0.11 Absolute Basophils 0.06 D-Dimer VBG pH VBG pCO2 VBG pO2 VBG HCO3 VBG Total CO2 VBG O2 Saturation VBG Base Excess Sodium Potassium Chloride Carbon Dioxide Anion Gap BUN Creatinine Est GFR (CKD-EPI 2020) Glucose Calcium Magnesium 2.1 Total Bilirubin AST ALT Alkaline Phosphatase Troponin I < 50 NT-Pro-B Natriuret Pep 127 Total Protein Albumin Procalcitonin COVID-19 Source Nasopharynx SARS-CoV-2 (PCR) Negative Influenza Type A (PCR) Negative Influenza Type B (PCR) Negative RSV (PCR) Negative 08/12/22 08/12/22 08/12/22 11:35 11:35 11:35 WBC RBC Hgb Hct MCV MCH MCHC RDW Plt Count MPV Immature Gran % Neutrophils % Lymphocytes % Monocytes % Eosinophils % Basophils % Nucleated RBC % Absolute Neutrophils Absolute Lymphocytes Absolute Monocytes Absolute Eosinophils Absolute Basophils D-Dimer 503 H VBG pH 7.40 VBG pCO2 39 L VBG pO2 42 VBG HCO3 24 VBG Total CO2 22 L VBG O2 Saturation 79 VBG Base Excess -1 Sodium 134 L Potassium 4.2 Chloride 102 Carbon Dioxide 23.8 Anion Gap 8.2 BUN 21 H Creatinine 1.2 Est GFR (CKD-EPI 2020) 73.67 Glucose 119 H Calcium 9.2 Magnesium Total Bilirubin 0.5 AST 27 ALT 21 Alkaline Phosphatase 113 Troponin I NT-Pro-B Natriuret Pep Total Protein 7.9 Albumin 3.3 L Procalcitonin COVID-19 Source SARS-CoV-2 (PCR) Influenza Type A (PCR) Influenza Type B (PCR) RSV (PCR) 08/12/22 08/12/22 11:35 15:31 WBC RBC Hgb Hct MCV MCH MCHC RDW Plt Count MPV Immature Gran % Neutrophils % Lymphocytes % Monocytes % Eosinophils % Basophils % Nucleated RBC % Absolute Neutrophils Absolute Lymphocytes Absolute Monocytes Absolute Eosinophils Absolute Basophils D-Dimer VBG pH VBG pCO2 VBG pO2 VBG HCO3 VBG Total CO2 VBG O2 Saturation VBG Base Excess Sodium Potassium Chloride Carbon Dioxide Anion Gap BUN Creatinine Est GFR (CKD-EPI 2020) Glucose Calcium Magnesium Total Bilirubin AST ALT Alkaline Phosphatase Troponin I < 50 NT-Pro-B Natriuret Pep Total Protein Albumin Procalcitonin 0.7 COVID-19 Source SARS-CoV-2 (PCR) Influenza Type A (PCR) Influenza Type B (PCR) RSV (PCR) Last Vital Signs Temp 37.3 C 08/12/22 15:37 Pulse 104 H 08/12/22 15:37 Resp 18 08/12/22 15:37 BP 126/81 08/12/22 15:37 Pulse Ox 95 08/12/22 15:37 Time Spent Time spent with Patient: 40-54 minutes Time was spent: preparing to see the patient(eg.review tests), obtaining and/or reviewing separately otained hiistory, ordering medications,tests, procedures, referring, communicating with other health career technical education teacher, indepentently interpreting results, counseling the patient and care coordination
[2022-08-12] MEDS: Mylanta Suspension 30 ML CUP PO (20:16)
[2022-08-12] MEDS: guaiFENesin 600 MG TABCR PO (20:16)
[2022-08-12] MEDS: Acetaminophen 325 MG TAB PO (21:25)
[2022-08-12] MEDS: rOPINIRole 0.5 MG TAB 1 MG PO (21:25)
[2022-08-12 23:37] LABS: Legionella Ag Detection Urine Negative (Negative)
[2022-08-13] VITALS (8 sets, daily range): BP systolic 109–130; BP diastolic 72–84; PULSE 85–109; RESP 8–20; TEMP 36.1–37.2; O2SAT 90–94
[2022-08-13] MEDS: Calcium Carbonate *TUMS* 500 MG CHEW PO (01:26)
[2022-08-13] MEDS: Albuterol/Ipratropium 3 ML UPD VIAL UPD ×2 (05:56→13:21)
[2022-08-13 06:43] LABS: Abs Immature Grans 0.11 10^3/uL (0.0-0.06); Absolute Lymphocyte Count 2.41 10^3/uL (1.2-3.4); Basophils % 0.3; HCT 42.4 % (40.0-50.0); HGB 14.4 g/dL (13.5-17.5); Immature Grans % 0.5; Lymphocytes % 10.6; MCH 30.1 pg (27.0-33.0); MCV 89 fL (80-95); Monocytes % 5.8; Neutrophils % 82.8; Platelet Count 347 10^3/uL (130-400); RBC 4.78 10^6/uL (4.36-5.78); RDW 13.8 % (11.8-14.1); RDW-SD 45.2 fL; WBC 22.77 10^3/uL (4.4-10.8)
[2022-08-13 06:49] LABS: Absolute Basophil Count 0.07 10^3/uL (0.0-0.2); Absolute Monocyte Count 1.32 10^3/uL (0.1-0.8); Absolute Neutrophil Count 18.85 10^3/uL (1.2-6.7)
[2022-08-13 06:56] LABS: Anion Gap 9.7 mmol/L (3-11); BUN 20 mg/dL (7-18); CO2 24.3 mmol/L (21.0-32.0); Calcium 9.3 mg/dL (8.5-10.1); Chloride 102 mmol/L (98-107); Estimated GFR 91.69 (mL/min/1.73m2); Glucose 134 mg/dL (74-106); Magnesium 2.2 mg/dL (1.8-2.4); Potassium 4.3 mmol/L (3.5-5.1); Sodium 136 mmol/L (136-145)
[2022-08-13] MEDS: Pantoprazole 20 MG TABCR PO (07:33)
[2022-08-13] MEDS: predniSONE 20 MG TAB 40 MG PO (07:34)
[2022-08-13] MEDS: guaiFENesin 600 MG TABCR PO (07:34)
[2022-08-13] MEDS: Benzonatate 200 MG CAP PO ×2 (07:34→13:34)
--- NOTE | 2022-08-13 12:08 | INITIAL_ITS ---
- If Service Date Differs Date of service: 08/13/22 Time of Service: 12:08 Care Management Initial Assess REASON FOR HOSPITALIZATION:: Pneumonia PAST MEDICAL HISTORY/PAST SURGICAL HISTORY:: All Active Problems. Discharge planning issues (Acute). DVT prophylaxis (Acute). CAP (community acquired pneumonia) (Acute). Respiratory failure with hypoxia (Acute). Shortness of breath (Acute). GERD (gastroesophageal reflux disease) (Chronic). Restless leg syndrome (Acute). Tobacco use disorder (Chronic). Started at age 18, 1/2 ppd. Medical History. Abrasion of cornea, right. Corneal rust ring of right eye. Eye foreign body PREVIOUS FUNCTIONAL STATUS/SOCIAL/FAMILY SUPPORTS:: Per chart review, Jr lives in [facility] with his S/O, Glo. He works at [employer] and is independent with ADLs in the community. CURRENT FUNCTIONAL STATUS:: Jr was busy with his RN when CM attempted to visit. Later in the afternoon, he was discharged home with no services. CM provided a letter for him to return to work on 08/19/22, as requested by provider. CM will continue to follow. ADVANCE DIRECTIVES:: None on file. CM will offer forms prior to discharge. Has patient been provided with info about the portal/API?: Yes Did the patient sign up for the portal?: No CODE STATUS:: Full Code INSURANCE COVERAGE / FINANCIAL ISSUES:: BC/BS out of state CURRENT HOME/COMMUNITY SERVICES/EQUIPMENT:: None. PRIMARY CARE PHYSICIAN:: Kenney Saleh POTENTIAL DISCHARGE NEEDS:: Follow up appointments. PATIENT/FAMILY EDUCATION NEEDS:: Review discharge instructions and limitations, discussion of self care needs including ask me three. ANTICIPATED BARRIERS TO DISCHARGE:: None identified. TRANSPORTATION:: Via private vehicle by family. PLAN:: Anticipate Jr will return home once medically cleared. He will follow up with his PCP and discharge plan of care, and transport via private vehicle with his S/O. CM will continue to follow.
[2022-08-13] MEDS: levoFLOXacin 750 MG/150 ML BAG 100 MG IVPB (13:33)
[2022-08-13] MEDS: Enoxaparin 40 MG/0.4 ML SYR SC (13:33)
--- NOTE | 2022-08-13 13:49 | W.PM.DS.N ---
Date of service: 08/13/22 Time of Service: 13:49 DS: Diagnosis Discharge Diagnosis (1) CAP (community acquired pneumonia): Status: Acute (2) Respiratory failure with hypoxia: Status: Acute (3) GERD (gastroesophageal reflux disease): Status: Chronic (4) Restless leg syndrome: Status: Acute (5) Tobacco use disorder: Status: Chronic (6) DVT prophylaxis: Status: Acute (7) Discharge planning issues: Status: Acute Discharge Plan Disposition Patient Disposition: Home Condition: Improving Discharge Details Reason For Visit: Pneumonia Admit Date/Time: 08/12/22 12:57 Admit Provider: Freya Lemus Attending Provider: Freya Lemus Primary Care Provider: Kenney Saleh [facility] Hospital Course: This is a 52 yo male patient who has no significant pmhx who is a chronic smoker, who presented to the [facility] ED on 08/12/2022 with a chief complaint of a cough and shortness of breath since Friday morning 08/10/2022,?without fevers.? Patient denied chest pain. He did complain of fatigue and general malaise as well. He denied a history of COPD but has been prescribed and has used inhalers in the past. He arrived in the ED with a room air of 85%, had apical wheezing bilaterally and diminished breath sounds at the bases bilaterally. He had no JVD or leg swelling on exam. Labs showed WBC of 12 otherwise benign, d dimer 503 which utilizing YEARS algorithm for PE is negative, negative troponin and negative fluvid. Chest xray does show bilateral pneumonia. He was speaking in full sentences, however, required 2-3 L oxygen via NC which is new for him. He has anaphylaxis to Penicillin, Levofloxacin was given in the ED.? He was admitted to the medical floor, stable for IV antibiotics, bronchodilators and oxygen.? He improved and was able to pass the exercise oximetry testing.? He is being discharged to home, stable with antibiotics, steroids, antitussives, expectorants and inhalers. He tested positive for MRSA in his nares and was prescribed Mupriorcin bilat nares twice a day for 7 days. He was started on pantoprazole orally for GERD and given a 30 day supply. He complained of restless leg syndrome and was started on Ropinerol 1 mg nightly, also a 30 day supply . He should follow up with his PCP regarding these new medications.? He was told to quit smoking immediately.? He was discharged with a prescription for nicotine inhalers. He was given information on getting help to quit smoking. Discussed with Dr Lemus [place] Meds and New Rx's Prescriptions: New benzonatate 200 mg Capsule 200 mg PO TID Qty: 30 0RF guaifenesin [Mucus Relief ER] 600 mg Tablet Extended Release 12hr 600 mg PO BID Qty: 0 0RF prednisone 20 mg Tablet 40 mg PO DAILY Qty: 5 0RF ropinirole 0.5 mg Tablet 1 mg PO HS Qty: 30 0RF L. Acidophilus,Casei,Rhamnosus [Bio-K Plus] 1 cap PO DAILY Qty: 0 0RF levofloxacin 750 mg tablet 750 mg PO DAILY Qty: 3 0RF Rx Instructions: to complete hospital course for total of 5 days pantoprazole [Protonix] 20 mg tablet,delayed release (DR/EC) 20 mg PO DAILY Qty: 30 0RF albuterol sulfate 90 mcg/actuation HFA aerosol inhaler 2 puff inhalation Q4H PRNQty: 8.5 0RF ipratropium-albuterol 20-100 mcg/actuation mist 1 puff inhalation Q6H Qty: 4 0RF mupirocin 2 % ointment 1 applic topical BID Qty: 22 0RF Rx Instructions: apply into each nostril twice daily for 7 days in combination with chlorhexidine body wash Nicotrol 10 mg cartridge 1 inh inhalation 12XD PRNQty: 168 0RF Continued calcium carbonate [Tums] 200 mg calcium (500 mg) tablet,chewable 200 mg PO BID PRN Patient Comments: No longer taking 08/12/22 CT Discharge Instructions Instructions: Benzonatate (By mouth), Albuterol (By breathing), Guaifenesin (By mouth), Levofloxacin (By mouth), Ipratropium/Albuterol (By breathing), Ropinirole (By mouth), Nicotine (By breathing), Mupirocin (Into the nose), MRSA (Methicillin-Resistant Staphylococcus Aureus) (DC), Bacterial Pneumonia (DC), Restless Legs Syndrome (ED) Additional Instructions: Apply Mupriocin ointment approximately into each nostril twice daily for 7 days in combination with a skin antiseptic (eg, chlorhexidine body wash sold over the counter). Try Ropinerol for your restless legs. STOP smoking. Take Levofloxacin and Prednisone for 3 days starting tomorrow, 08/14/2022; Use inhalers as needed for wheezing, shortness of breath. Guaifenesin and Benzonatate for cough. Stand Alone Forms: Nursing Discharge Form Referrals: Kenney Saleh DO [Primary Care Provider] - 08/20/22 8:00 am () Activity:: Activity as Tolerated Equipment/Supplies:: No Equipment Needed Diet:: As Tolerated Discharge Orders Discharge Orders: Discharge Order (Routine); Ordered 08/13/22 Ordered By: Shelbi Fulton Discharge Data Discharge Date/Time-TO BE ENTERED AT DEPARTURE: 08/13/22 15:26 DS: Summary Time Spent with Patient providing and/or coordinating discharge services: Greater than 30 minutes Status at Discharge Functional status at discharge: independent ambulation Overall status at discharge: patient is back to baseline Mental Status: mental status grossly normal Speech and Movement: speech and movement normal Mood: congruent mood Affect: normal affect Exam Narrative Exam Narrative: Awake, alert sitting on the side of the bed eating lunch; speaking in full sentences, no oxygen on. Family in the room. Const General: no acute distress Orientation: alert HENMT Head: normal to inspection Ears: external ears normal General nose exam: external nose normal Mouth: moist mucous membranes Eyes General: appearance normal, both eyes and all related structures Neck Neck: normal visual inspection Resp Auscultation: diminished lung sounds and wheezes (bibasilar) expiratory wheezes Cardio Jugular venous pressure: no JVD Rate: regular rate Heart Sounds: no murmurs Skin General skin exam: no rashes or lesions noted Neuro General: patient alert and patient oriented x3 Extrem General: normal to inspection Psych Mental Status: mental status grossly normal Speech and Movement: speech and movement normal Mood: congruent mood Affect: normal affect DS: Data Vitals/I&O Vitals and I&O: Vital Signs Temperature 37.2 C 08/13/22 11:41 Temperature Source Tympanic 08/13/22 11:41 Pulse 97 H 08/13/22 13:21 Pulse Rhythm Regular 08/13/22 08:00 Respiratory Rate 12 08/13/22 13:21 Respiratory Effort Normal, Non-Labored 08/13/22 08:00 Respiratory Depth Normal 08/13/22 08:00 Respiratory Pattern Normal 08/13/22 08:00 Blood Pressure 109/74 08/13/22 11:41 Blood Pressure Position Sitting 08/12/22 11:02 Pulse Oximetry 94 08/13/22 13:21 Oxygen Delivery Method Room Air 08/13/22 13:21 Oxygen Flow Rate 0 08/13/22 13:21 Pain Level 5 08/13/22 08:00 Comment RN informed of hr 08/12/22 15:37 Intake & Output 08/12/22 08/13/22 08/13/22 23:59 11:59 23:59 Intake Total 810 / 810 410 / 410 Output Total 300 / 300 Balance 810 / 810 110 / 110 Weight 93.8 kg Intake: IV 310 / 310 10 / 10 Oral 500 / 500 400 / 400 Output: Urine 300 / 300 Other: Urine Color Light Iris Urine Appearance Clear Clear Sediment Sediment Urine Odor Normal Voiding Methods Toilet Urinal Data Completed and Pending Labs on day of discharge: Labs from last 24 hours 08/13/22 08/13/22 08/12/22 06:18 06:18 15:31 WBC 22.77 H RBC 4.78 Hgb 14.4 Hct 42.4 MCV 89 MCH 30.1 MCHC 34.0 RDW 13.8 Plt Count 347 MPV 9.0 Immature Gran % 0.5 Neutrophils % 82.8 Lymphocytes % 10.6 Monocytes % 5.8 Eosinophils % 0.0 Basophils % 0.3 Nucleated RBC % 0.0 Absolute Neutrophils 18.85 H Absolute Lymphocytes 2.41 Absolute Monocytes 1.32 H Absolute Eosinophils 0.00 Absolute Basophils 0.07 Sodium 136 Potassium 4.3 Chloride 102 Carbon Dioxide 24.3 Anion Gap 9.7 BUN 20 H Creatinine 1.0 Est GFR (CKD-EPI 2020) 91.69 Glucose 134 H Calcium 9.3 Magnesium 2.2 Troponin I < 50 Procalcitonin Urine Legionella Ag Ur Strep pneumoniae Ag Add-On Test Request 08/12/22 08/12/22 08/12/22 14:00 11:35 11:35 WBC RBC Hgb Hct MCV MCH MCHC RDW Plt Count MPV Immature Gran % Neutrophils % Lymphocytes % Monocytes % Eosinophils % Basophils % Nucleated RBC % Absolute Neutrophils Absolute Lymphocytes Absolute Monocytes Absolute Eosinophils Absolute Basophils Sodium Potassium Chloride Carbon Dioxide Anion Gap BUN Creatinine Est GFR (CKD-EPI 2020) Glucose Calcium Magnesium Troponin I Procalcitonin 0.7 Urine Legionella Ag Negative Ur Strep pneumoniae Ag Pending Add-On Test Request Pending 08/12/22 13:20 Blood Blood Culture - Pending 08/12/22 13:05 Blood Blood Culture - Pending Preliminary micro results at discharge 08/12/22 13:20 Blood Culture - Pending Blood 08/12/22 13:05 Blood Culture - Pending Blood PFSH All Active Problems (Updated 08/12/22 @ 16:40 by Shelbi Fulton NP) Discharge planning issues (Acute) DVT prophylaxis (Acute) CAP (community acquired pneumonia) (Acute) Respiratory failure with hypoxia (Acute) Shortness of breath (Acute) GERD (gastroesophageal reflux disease) (Chronic) Restless leg syndrome (Acute) Tobacco use disorder (Chronic) Started at age 18, 1/2 ppd Medical History (Updated 08/12/22 @ 16:40 by Shelbi Fulton NP) Abrasion of cornea, right Corneal rust ring of right eye Eye foreign body Family History (Updated 11/06/21 @ 15:04 by Bibi Rios) Mother Depression Diabetes Hypertension Maternal Grandfather Diabetes Hypertension Paternal Grandfather Heart disease Hypertension Maternal Grandmother Heart disease Hypertension Paternal Grandmother Hypertension Father Hypertension Social History (Updated 11/06/21 @ 15:02 by Bibi Rios) Smoking/Tobacco Use Status: Current every day Tobacco Type: cigarettes Smoking risk assessment performed?: Yes Alcohol Intake: former Drug use: Never Substance use type: does not use Adopted: No Caregiver/Support person: No Foster care: No Household members: family Housing: apartment Number of Children: 5 number of grandchildren: 4 Communication Needs: Corrective Lenses Do you need help understanding health information?: Never Pets and animals: Yes Pets and animals: dog(s) and bird(s) Sexually active: Yes Do you think of yourself as: straight/heterosexual Current gender identity: male How often do you talk on the phone with friends or family?: twice per week How often do you get together with friends or relatives?: twice per week Do you belong to any clubs or organized social groups?: no Panel score (0-1 are the most socially isolated patients): 1 Rima/Anabaptism: None Seatbelt use: always Helmet use: No Drive intox or ride w/intox haul driver: No Do you feel safe at home: Yes Do you feel safe in your relationship?: Yes Time Spent with Patient Time Spent with Patient: 45-69 minutes Time was spent: preparing to see the patient(eg.review tests), ordering medications,tests, procedures, referring, communicating with other health home health care social worker, indepentently interpreting results, counseling the patient and care coordination
--- NOTE | 2022-08-13 16:02 | NUR.NOTE ---
1530 Patient was discharged. 18g PIV to RAC was removed. DC instructions were reviewed & all questions & or concerns were addressed. Patient was taken off the unit & taken to his car. Nursing Note:
--- NOTE | 2022-08-13 16:26 | PDOC.CMDIS ---
- If Service Date Differs Date of service: 08/13/22 Time of Service: 16:26 LACE Index Scoring Tool - Questions: Length of Stay (in days): 1 Acuity (Admit via E.D.?): Yes E.D. Visits: 1 - Answers: Total Score: 5 Risk of Readmission: Low Risk Care Management Discharge Reason for Hospitalization: Pneumonia Discharge Plan: Jr returned home today with no new services. His s/o drove him home via private vehicle. He will follow up with his PCP and discharge plan of care. He is happy to be returning home. Patient/Family Education Needs: Review discharge instructions and limitations, discussion of self care needs including ask me three.
[2022-08-14 07:28] LABS: Lab Add On Test done
[2022-08-14 11:20] LABS: Streptococcus Pneumoniae Ag, U Negative (Negative)
== END 2022-08-13 15:26 | disposition home or self-care (01) ==
LOC: ER 13:04 → MS 08-13 10:32
PROVIDERS: Nurse Practitioner Family; Admitting Provider Internal Medicine; Emergency Provider Emergency Medicine; PCP Family Medicine; Visit Provider Internal Medicine
DX: J18.9 Pneumonia, unspecified organism (principal); J96.01 Acute respiratory failure with hypoxia; K21.9 Gastro-esophageal reflux disease without esophagitis; F17.210 Nicotine dependence, cigarettes, uncomplicated; G25.89 Other specified extrapyramidal and movement disorders
CPT/HCPCS: 36410; 36415; 80048; 80053; 82805; 84145; 87040; 87081; 87449; 87637; 93005; 94618; 94640; 96365; 96366; 96372; 96375; 99285; J1650; 71045; 83735; 83880; 84484; 85025; 85379; 87899; 93010; 94667; 99222; 99239; J1956; J2930; J7512; J7620

== ENCOUNTER 2022-08-22 11:05 | Emergency (ER) | payer BC, SELFPAY ==
[2022-08-22] VITALS (28 sets, daily range): BP systolic 83–127; BP diastolic 50–82; PULSE 80–99; RESP 8–28; TEMP 36.6; O2SAT 87–99
--- NOTE | 2022-08-22 11:15 | RT.EKG_ITS ---
APPROVED REPORT Exam: Resting ECG Reason for Exam: sob Patient Location: E HR:89 bpm ECG Measurements Heart Rate 89 AXIS FL 163 P 54 QRSd 86 QRS 49 QT 353 T 34 QTc 431 Conclusion Sinus rhythm...normal P axis, V-rate 60- 99. Sinus. Normal axis. No STEMI. I have reviewed and interpreted ECG and agree with software generated interpretation.
--- NOTE | 2022-08-22 11:30 | DI.RAD_ITS ---
Exam(s) XR CHEST 2V PA LATERAL EXAM: XR CHEST 2V PA LATERAL CLINICAL HISTORY: SOB, Recent PNA TECHNIQUE: 2D digital imaging was performed of the chest. Two images were obtained. PA and lateral views were obtained. COMPARISON: CR,XR XR CHEST 2V PA LATERAL from 05/09/2019 FINDINGS: MEDIASTINUM: Normal. HEART: Normal. PULMONARY VASCULATURE: Normal. LUNGS: There are bilateral pulmonary infiltrates present. PLEURAL SPACE: No pleural effusion or pneumothorax. BONE:Within normal limits for the patient's age. OTHER FINDINGS:Normal. IMPRESSION: Bilateral pneumonia. DATA REPOSITORY: RADIATION DOSE DELIVERED:
--- NOTE | 2022-08-22 11:31 | ED.GENADUL_ITS ---
Discharge Plan Disposition Patient Disposition: Home Condition: Stable Discharge Details Clinical Impression: Bilateral pneumonia Primary Care Provider: Kenney Saleh ED Provider: Celi Davies Home Meds and New Rx's Prescriptions: New prednisone 20 mg tablet 60 mg PO DAILY 9 Days Qty: 17 0RF Rx Instructions: Take 3 tabs daily x 3 days, Take 2 tabs daily x 3 days, Take one tab daily x 3 days. doxycycline hyclate 100 mg tablet 100 mg PO BID 10 Days Qty: 20 0RF benzonatate 100 mg capsule 100 mg PO TID PRN (Reason: cough) 5 Days Qty: 14 0RF Rx Instructions: Take 1 capsule up to 3 times daily as needed for cough No Action pantoprazole [Protonix] 20 mg tablet,delayed release (DR/EC) 20 mg PO DAILY Qty: 90 3RF ropinirole 0.5 mg tablet 0.5 mg PO HS Qty: 90 3RF calcium carbonate [Tums] 200 mg calcium (500 mg) tablet,chewable 200 mg PO BID PRN Patient Comments: No longer taking 08/12/22 CT benzonatate 200 mg Capsule 200 mg PO TID Qty: 30 0RF albuterol sulfate 90 mcg/actuation HFA aerosol inhaler 2 puff inhalation Q4H PRNQty: 8.5 0RF ipratropium-albuterol 20-100 mcg/actuation mist 1 puff inhalation Q6H Qty: 4 0RF Nicotrol 10 mg cartridge 1 inh inhalation 12XD PRNQty: 168 0RF Discharge Instructions Instructions: Pneumonia (ED) Additional Instructions: You have been placed on a longer dose of antibiotic called doxycycline. You are also given a longer dose of prednisone. This is a tapering dose. Please follow the instructions. Follow up with primary care provider in 3-5 days. Return to ED sooner if any worsening or concerns. Increase oral fluids. Continue using the incentive spirometer as previously instructed. Please take Tylenol or Ibuprofen with food every 4-6 hours as needed for pain and swelling. Continue to use the albuterol inhaler 1 or 2 puffs every 4-6 hours. Stand Alone Forms: Work Release Referrals: Kenney Saleh DO [Primary Care Provider] - 3 days Discharge Data Discharge Date/Time-TO BE ENTERED AT DEPARTURE: 08/22/22 13:56 Medical Decision Making 52-year-old male presents to the ER with chief complaint of increased cough and shortness of breath after recent diagnosis and admission for pneumonia approximately a week ago. Patient went home with 3 days of levofloxacin and prednisone which he finished. He is still continuing to take Tessalon Perles. He reports that yesterday had an onset of increased coughing with back pain and shortness of breath he reports it is getting worse. He denies smoking for the last 11 days he is using a Nicotrol inhaler. Work-up ordered including CBC CMP, lactate, chest x-ray COVID swab. Patient was negative for COVID on the . Patient reevaluation, he is 90 to 93% on room air, he reports feeling better after the DuoNeb. I did discuss x-ray results with him. I do suspect that he needs a longer course of antibiotic. I will place him on doxycycline 100 mg twice daily for the next 10 days. I will also give him an additional prednisone Dosepak. Discussed follow-up with PCP he verbalized understanding. He is also requesting Tessalon Perle refill. He is speaking in full sentences. Discussed tricked return instructions and follow-up care. This text was generated using [employer] dictation system, please disregard any oddities of phrase or misspellings. Medical Records Medical records reviewed: Yes I reviewed the patient's medical records. Imaging Data Radiologic Study: Imaging: X-Ray Radiologist's impression: FINDINGS: MEDIASTINUM: Normal. HEART: Normal. PULMONARY VASCULATURE: Normal. LUNGS: There are bilateral pulmonary infiltrates present. PLEURAL SPACE: No pleural effusion or pneumothorax. BONE:Within normal limits for the patient's age. OTHER FINDINGS:Normal. IMPRESSION: Bilateral pneumonia. Lab Data Lab results reviewed: Yes I reviewed the patient's lab results. Labs: Laboratory Tests Range/Units 08/22/22 08/22/22 08/22/22 11:32 11:44 11:44 WBC (4.4-10.8) 10^3/uL 8.93 RBC (4.36-5.78) 10^6/uL 4.63 Hgb (13.5-17.5) g/dL 14.2 Hct (40.0-50.0) % 41.4 MCV (80-95) fL 89 MCH (27.0-33.0) pg 30.7 MCHC (32.0-36.0) % 34.3 RDW (11.8-14.1) % 13.6 Plt Count (130-400) 10^3/uL 402 H MPV (8.0-11.0) fL 9.4 Immature Gran % 0.2 Neutrophils % 60.0 Lymphocytes % 29.2 Monocytes % 8.4 Eosinophils % 1.8 Basophils % 0.4 Nucleated RBC % (0.0-0.3) % 0.0 Absolute Neutrophils (1.2-6.7) 10^3/uL 5.35 Absolute Lymphocytes (1.2-3.4) 10^3/uL 2.61 Absolute Monocytes (0.1-0.8) 10^3/uL 0.75 Absolute Eosinophils (0.0-0.7) 10^3/uL 0.16 Absolute Basophils (0.0-0.2) 10^3/uL 0.04 VBG Lactate (0.6-1.4) mmol/L Sodium Cancelled Potassium Cancelled Chloride Cancelled Carbon Dioxide Cancelled Anion Gap Cancelled BUN Cancelled Creatinine Cancelled Est GFR (CKD-EPI 2020) Cancelled Glucose Cancelled Calcium Cancelled Total Bilirubin Cancelled AST Cancelled ALT Cancelled Alkaline Phosphatase Cancelled Troponin I (<or=60) ng/L Total Protein Cancelled Albumin Cancelled COVID-19 Source Nasal/Nares SARS-CoV-2 (PCR) (Negative) Negative Range/Units 08/22/22 08/22/22 11:44 12:28 WBC (4.4-10.8) 10^3/uL RBC (4.36-5.78) 10^6/uL Hgb (13.5-17.5) g/dL Hct (40.0-50.0) % MCV (80-95) fL MCH (27.0-33.0) pg MCHC (32.0-36.0) % RDW (11.8-14.1) % Plt Count (130-400) 10^3/uL MPV (8.0-11.0) fL Immature Gran % Neutrophils % Lymphocytes % Monocytes % Eosinophils % Basophils % Nucleated RBC % (0.0-0.3) % Absolute Neutrophils (1.2-6.7) 10^3/uL Absolute Lymphocytes (1.2-3.4) 10^3/uL Absolute Monocytes (0.1-0.8) 10^3/uL Absolute Eosinophils (0.0-0.7) 10^3/uL Absolute Basophils (0.0-0.2) 10^3/uL VBG Lactate (0.6-1.4) mmol/L 1.4 Sodium 135 L Potassium 4.2 Chloride 102 Carbon Dioxide 27.4 Anion Gap 5.6 BUN 17 Creatinine 1.0 Est GFR (CKD-EPI 2020) 91.69 Glucose 125 H Calcium 8.9 Total Bilirubin 0.3 AST 22 ALT 24 Alkaline Phosphatase 109 Troponin I (<or=60) ng/L < 50 Total Protein 7.1 Albumin 2.7 L COVID-19 Source SARS-CoV-2 (PCR) (Negative) HPI General Mode of arrival: ambulatory . Date/Time Provider Initiated Documentation: 08/22/22 11:08 . Limitations to Documentation: no limitations . Information obtained by: patient, RN notes reviewed and old records reviewed . HPI Narrative: 52-year-old male presents to the ER with chief complaint of increased cough and shortness of breath after recent diagnosis and admission for pneumonia approximately a week ago. Patient went home with 3 days of levofloxacin and prednisone which he finished. He is still continuing to take Tessalon Perles. He reports that yesterday had an onset of increased coughing with back pain and shortness of breath he reports it is getting worse. He denies smoking for the last 11 days he is using a Nicotrol inhaler. He denies any drugs or alcohol. He is satting 89% on room air. He does have a past medical history of restless leg syndrome, GERD and is a former smoker. Related Data Home Medications Medication Instructions Recorded Confirmed calcium carbonate 200 mg calcium 200 mg PO BID PRN 11/09/21 08/20/22 (500 mg) chewable tablet (Tums) albuterol sulfate 90 mcg/actuation 2 puff inhalation Q4H PRN #8.5 08/13/22 08/20/22 aerosol inhaler grams benzonatate 200 mg capsule 200 mg PO TID #30 caps 08/13/22 08/20/22 ipratropium 20 mcg-albuterol 100 1 puff inhalation Q6H #4 grams 08/13/22 08/20/22 mcg/actuation mist for inhalation nicotine 10 mg inhalation 1 inh inhalation 12XD PRN #168 ea 08/13/22 08/20/22 cartridge (Nicotrol) pantoprazole 20 mg tablet,delayed 20 mg PO DAILY #90 tabs 08/20/22 08/20/22 release (Protonix) ropinirole 0.5 mg tablet 0.5 mg PO HS #90 tabs 08/20/22 08/20/22 benzonatate 100 mg capsule 100 mg PO TID PRN cough 5 days #14 08/22/22 caps doxycycline hyclate 100 mg tablet 100 mg PO BID 10 days #20 tabs 08/22/22 prednisone 20 mg tablet 60 mg PO DAILY Lumbago 9 days #17 08/22/22 tabs Previous Rx's Medication Instructions Recorded albuterol sulfate 90 mcg/actuation 2 puff inhalation Q4H PRN #8.5 08/13/22 aerosol inhaler grams benzonatate 200 mg capsule 200 mg PO TID #30 caps 08/13/22 ipratropium 20 mcg-albuterol 100 1 puff inhalation Q6H #4 grams 08/13/22 mcg/actuation mist for inhalation nicotine 10 mg inhalation 1 inh inhalation 12XD PRN #168 ea 08/13/22 cartridge (Nicotrol) pantoprazole 20 mg tablet,delayed 20 mg PO DAILY #90 tabs 08/20/22 release (Protonix) ropinirole 0.5 mg tablet 0.5 mg PO HS #90 tabs 08/20/22 benzonatate 100 mg capsule 100 mg PO TID PRN cough 5 days #14 08/22/22 caps doxycycline hyclate 100 mg tablet 100 mg PO BID 10 days #20 tabs 08/22/22 prednisone 20 mg tablet 60 mg PO DAILY Lumbago 9 days #17 08/22/22 tabs Allergies Allergy/AdvReac Type Severity Reaction Status Date / Time Penicillins Allergy Severe Anaphylaxis Unverified 08/20/22 08:06 vinegar Allergy Severe hives/nause Uncoded 08/20/22 08:06 a General Stated Complaint: RespSymp RADHA: 3 Review of Systems All systems reviewed & are unremarkable except as noted in HPI and below Cardiovascular Cardiovascular: Reports dyspnea on exertion Respiratory Respiratory: Reports cough, Reports pain with cough and Reports dyspnea on exertion Gastrointestinal Gastrointestinal: Reports vomiting (Due to cough) PFSH All Active Problems (Updated 08/22/22 @ 13:39 by Celi Davies NP) Bilateral pneumonia (Acute) CAP (community acquired pneumonia) (Acute) Shortness of breath (Acute) GERD (gastroesophageal reflux disease) (Chronic) Restless leg syndrome (Acute) Tobacco use disorder (Chronic) Started at age 18, 1/2 ppd Medical History Abrasion of cornea, right Corneal rust ring of right eye Eye foreign body Family History Mother Depression Diabetes Hypertension Maternal Grandfather Diabetes Hypertension Paternal Grandfather Heart disease Hypertension Maternal Grandmother Heart disease Hypertension Paternal Grandmother Hypertension Father Hypertension Social History Smoking/Tobacco Use Status: Current every day Tobacco Type: cigarettes Smoking risk assessment performed?: Yes Alcohol Intake: former Drug use: Never Substance use type: does not use Adopted: No Caregiver/Support person: No Foster care: No Household members: family Housing: apartment Number of Children: 5 number of grandchildren: 4 Communication Needs: Corrective Lenses Do you need help understanding health information?: Never Pets and animals: Yes Pets and animals: dog(s) and bird(s) Sexually active: Yes Do you think of yourself as: straight/heterosexual Current gender identity: male How often do you talk on the phone with friends or family?: twice per week How often do you get together with friends or relatives?: twice per week Do you belong to any clubs or organized social groups?: no Panel score (0-1 are the most socially isolated patients): 1 Rima/Hindu: None Seatbelt use: always Helmet use: No Drive intox or ride w/intox regional tanker truck driver: No Do you feel safe at home: Yes Do you feel safe in your relationship?: Yes Exam Narrative Exam Narrative: Constitutional: Alert and oriented x3. Appears stated age. Normal body habitus. Head: Normocephalic, no trauma. Eyes: Pupils PERRL, Red reflex noted, EOM's intact. Eyelids symmetrical without lesions, discharge, or swelling. ENT: Bilateral TM's WNL, External ear normal to inspection, no mastoid TTP, swelling, or erythema, Nasal turbinates WNL, no nasal discharge. Normal dentition, Posterior pharynx WNL, no exudate. Chest: RRR, Normal S1, S2, distal pulses intact. Resp: Lungs clear to auscultation bilaterally, no wheezes, rales, or rhonchi. Abdomen: Soft, non-distended, Normoactive bowel sounds all 4 quads. Musculoskeletal: Normal gait, 5/5 strength to all four extremities. Skin: No suspicious rashes or lesions. Capillary refill less than 2 sec. Neurologic: Cranial nerves II-XII intact. Alert and oriented x 3. Motor: No deficits noted. Sensory: Intact bilaterally all 4 extremities. Reflexes: DTR's intact bilaterally.. Hematologic/Lymphatic: No ecchymosis, no lymphadenopathy. Course Vital Signs Vital signs: Vital Signs Temperature 36.6 C 08/22/22 11:09 Pulse 81 08/22/22 11:09 Respiratory Rate 22 08/22/22 11:09 Blood Pressure 119/72 08/22/22 11:09 Pulse Oximetry 89 L 08/22/22 11:09 Temperature 36.6 C 08/22/22 11:09 Temperature Source Oral 08/22/22 11:09 Pulse 81 08/22/22 11:09 Respiratory Rate 22 08/22/22 11:09 Blood Pressure 119/72 08/22/22 11:09 Blood Pressure Position Sitting 08/22/22 11:09 Pulse Oximetry 89 L 08/22/22 11:09 Oxygen Delivery Method Room Air 08/22/22 11:09 Oxygen Flow Rate 0 08/22/22 11:09 Pain Level 7 08/22/22 11:09
[2022-08-22] MEDS: Albuterol/Ipratropium 3 ML UPD VIAL UPD (11:35)
[2022-08-22 11:36] LABS: Source Nasal/Nares
[2022-08-22 12:31] LABS: Lactate 1.4 mmol/L (0.6-1.4)
[2022-08-22 12:32] LABS: Abs Immature Grans 0.02 10^3/uL (0.0-0.06); Absolute Basophil Count 0.04 10^3/uL (0.0-0.2); Absolute Eosinophil Count 0.16 10^3/uL (0.0-0.7); Absolute Lymphocyte Count 2.61 10^3/uL (1.2-3.4); Absolute Monocyte Count 0.75 10^3/uL (0.1-0.8); Absolute Neutrophil Count 5.35 10^3/uL (1.2-6.7); Basophils % 0.4; Eosinophils % 1.8; HCT 41.4 % (40.0-50.0); HGB 14.2 g/dL (13.5-17.5); Immature Grans % 0.2; Lymphocytes % 29.2; MCH 30.7 pg (27.0-33.0); MCHC 34.3 % (32.0-36.0); MCV 89 fL (80-95); MPV 9.4 fL (8.0-11.0); Monocytes % 8.4; Platelet Count 402 10^3/uL (130-400); RBC 4.63 10^6/uL (4.36-5.78); RDW 13.6 % (11.8-14.1); RDW-SD 44.7 fL; WBC 8.93 10^3/uL (4.4-10.8)
[2022-08-22 12:47] LABS: ALT 24 U/L (16-63); AST 22 U/L (15-37); Albumin 2.7 g/dL (3.4-5.0); Alkaline Phosphatase 109 U/L (46-116); Anion Gap 5.6 mmol/L (3-11); BUN 17 mg/dL (7-18); Bilirubin, Total 0.3 mg/dL (0.2-1.0); CO2 27.4 mmol/L (21.0-32.0); Calcium 8.9 mg/dL (8.5-10.1); Chloride 102 mmol/L (98-107); Estimated GFR 91.69 (mL/min/1.73m2); Glucose 125 mg/dL (74-106); Potassium 4.2 mmol/L (3.5-5.1); Sodium 135 mmol/L (136-145); Total Protein 7.1 g/dL (6.4-8.2); Troponin I < 50 ng/L (<or=60)
[2022-08-22 12:52] LABS: COVID-19 PCR Negative (Negative)
[2022-08-22] MEDS: Doxycycline Hyclate 100 MG CAP PO (13:48)
[2022-08-22] MEDS: predniSONE 20 MG TAB 40 MG PO (13:48)
== END 2022-08-22 13:56 | disposition home or self-care (01) ==
PROVIDERS: Emergency Provider Registered Nurse Emergency; PCP Family Medicine
DX: J18.9 Pneumonia, unspecified organism (principal); R06.02 Shortness of breath; R05.9 Cough, unspecified; Z20.822 Contact with and (suspected) exposure to COVID-19
CPT/HCPCS: 80053; 87635; 93005; 94640; 99284; 71046; 83605; 84484; 85025; 93010; J7512; J7620

== ENCOUNTER 2023-08-15 18:08 | Emergency (ER) | payer BC, SELFPAY ==
--- NOTE | 2023-08-15 18:15 | DI.RAD_ITS ---
Exam(s) XR FOOT LT COMPLETE EXAM: XR FOOT LT COMPLETE CLINICAL HISTORY: pain at plantar fascia and calc.. TECHNIQUE: 2D digital imaging was performed. COMPARISON: No exams were available for comparison FINDINGS: 3 views No evidence of acute fracture or diastasis of the Lisfranc joint. Great toe metatarsophalangeal join ts unremarkable. No pes planus. Moderate size inferior calcaneal spur. No calcification in the plantar fascia. Smal l enthesophyte noted on the posterior calcaneus insertion site of the Achilles tendon. No osseous le sions. No erosions. IMPRESSION: Mild findings as above. No fractures. DATA REPOSITORY: RADIATION DOSE DELIVERED:
[2023-08-15 18:17] VITALS: BP 122/80; PULSE 101; RESP 18; TEMP 36.1; O2SAT 99
[2023-08-15] MEDS: Ibuprofen 800 MG TAB PO (19:00)
[2023-08-15] MEDS: Diclofenac 1% Gel 100 GM TUBE TP (19:00)
--- NOTE | 2023-08-15 19:07 | W.ED.GENAD ---
Discharge Plan Disposition Patient Disposition: Home Condition: Good Discharge Details Clinical Impression: Plantar fasciitis Primary Care Provider: Kenney Saleh ED Provider: Yuri Contreras Home Meds and New Rx's Prescriptions: No Action pantoprazole [Protonix] 20 mg tablet,delayed release (DR/EC) 20 mg PO DAILY Qty: 90 3RF ropinirole 0.5 mg tablet 0.5 mg PO HS Qty: 90 3RF calcium carbonate [Tums] 200 mg calcium (500 mg) tablet,chewable 200 mg PO BID PRN Patient Comments: No longer taking 08/12/22 CT Nicotrol 10 mg cartridge 1 inh inhalation 12XD PRNQty: 168 0RF Discharge Instructions Instructions: Plantar Fasciitis (ED), Plantar Fasciitis Exercises (ED) Additional Instructions: At this time you have plantar fasciitis. Please for perform the stretching exercises that we discussed. Please apply the Voltaren gel every 6 hours to your foot. Please take Tylenol and Motrin for pain. The maximum doses are 1000 mg of Tylenol every 6 hours and 800 mg of Motrin every 6 hours. Please make sure you are wearing good arch support in your shoes at all times. Please roll the frozen ice bottle anytime that you are not walking or you are relaxing. I expect it to take 2 to 3 weeks for this pain to resolve. If you notice any worsening of your symptoms, or any new symptoms such as vomiting, diarrhea, fever, chills, shortness of breath, chest pain, numbness, weakness, or fainting , please return immediately to the emergency department for reevaluation. Please follow up with your primary care provider as soon as possible for reassessment and reevaluation. As always, it was a pleasure participating in your medical care today. Referrals: Kenney Saleh DO [Primary Care Provider] - [facility] General Date/Time Provider Initiated Documentation: 08/15/23 18:13. HPI Narrative: Pleasant 53-year-old male with past medical history of GERD presents today for evaluation of left heel pain. The patient states that for the last 30 hours he has developed pain on his left heel whenever he ambulates. He denies any trauma. He is on his feet throughout the day secondary to his work at [employer]. He denies any fever or chills or numbness or tingling. No other complaints at this time. No other pain like this in the past. Pain is made worse with ambulation. Is relieved with rest. Related Data Home Medications Medication Instructions Recorded Confirmed calcium carbonate (Tums) 200 mg PO BID PRN 11/09/21 08/15/23 nicotine 10 mg inhalation 1 inh inhalation 12XD PRN #168 ea 08/13/22 08/15/23 cartridge (Nicotrol) pantoprazole 20 mg tablet,delayed 20 mg PO DAILY #90 tabs 08/12/23 08/15/23 release (Protonix) ropinirole 0.5 mg tablet 0.5 mg PO HS #90 tabs 08/12/23 08/15/23 Previous Rx's Medication Instructions Recorded nicotine 10 mg inhalation 1 inh inhalation 12XD PRN #168 ea 08/13/22 cartridge (Nicotrol) pantoprazole 20 mg tablet,delayed 20 mg PO DAILY #90 tabs 08/12/23 release (Protonix) ropinirole 0.5 mg tablet 0.5 mg PO HS #90 tabs 08/12/23 Allergies Allergy/AdvReac Type Severity Reaction Status Date / Time Penicillins Allergy Severe Anaphylaxis Unverified 08/12/23 08:39 vinegar Allergy Severe hives/nause Uncoded 08/12/23 08:39 a General Stated Complaint: Orthopedic RADHA: 4 Review of Systems All systems reviewed & are unremarkable except as noted in HPI and below Exam Narrative Exam Narrative: 1.Const: Well-nourished, Well-developed, appearing stated age 2.Eyes: PERRL, no conjunctival injection, and symmetrical lids. 3.ENT: Atraumatic external nose and ears. Moist MM. Neck: Symmetric, trachea midline, No thyromegaly. 7.MSK: Left heel demonstrates no redness warmth or erythema. No signs of trauma. Mild tenderness over the bottom of the calcaneus and over the proximal plantar fascia. 8.Skin: Warm, Dry. No rashes or lesions. 9.Neuro: compliance tester II-XII grossly intact. Sensation grossly intact, no focal neurologic deficits. 10.Psych: (AAO) x3. Appropriate mood and affect Course Vital Signs Vital signs: Vital Signs Temperature 36.1 C L 08/15/23 18:17 Pulse 101 H 08/15/23 18:17 Respiratory Rate 18 08/15/23 18:17 Blood Pressure 122/80 08/15/23 18:17 Pulse Oximetry 99 08/15/23 18:17 Temperature 36.1 C L 08/15/23 18:17 Temperature Source Temporal Artery Scan 08/15/23 18:17 Pulse 101 H 08/15/23 18:17 Respiratory Rate 18 08/15/23 18:17 Respiratory Effort Normal 08/15/23 18:25 Blood Pressure 122/80 08/15/23 18:17 Pulse Oximetry 99 08/15/23 18:17 Oxygen Delivery Method Room Air 08/15/23 18:17 Oxygen Flow Rate 0 08/15/23 18:17 Medical Decision Making Pleasant 53-year-old male with past medical history of GERD presents today for evaluation of left heel pain. The patient states that for the last 30 hours he has developed pain on his left heel whenever he ambulates. He denies any trauma. He is on his feet throughout the day secondary to his work at [employer]. He denies any fever or chills or numbness or tingling. No other complaints at this time. No other pain like this in the past. Pain is made worse with ambulation. Is relieved with rest. Physical exam demonstrates tenderness over the base of the calcaneus, as well as the proximal aspect of the plantar fascia. No signs of redness warmth or infection otherwise. No evidence of trauma. Differential is highest for plantar fasciitis, will give Voltaren gel, recommend stretching, get an x-ray to rule out acute fracture or osseous process. 7:44 PM X-ray shows evidence of mild calcaneal spurring, no acute abnormality otherwise. Symptoms consistent with plantar fasciitis. Will recommend continued NSAIDs, good arch support, and stretching exercises for home. Discussed red flags for which to return. I have extensively reviewed the treatment plan and discharge instructions with the patient. I have addressed all patient concerns at this time. The patient was made aware of what symptoms to monitor for that would warrant a return to the emergency department. Discussed the plan with the patient, they demonstrate verbal understanding and agreement with our assessment and plan at this time. The documentation in this chart was dictated using [employer] dictation software. Please excuse any dictation errors. FINDINGS: Bones/joints: Osseous alignment is normal. No acute fracture or significant arthritic change. Mild plantar calcaneal spurring. Mild enthesophyte formation of the Achilles tendon attachment. Soft tissues: Normal. IMPRESSION: Mild calcaneal spurring. No acute abnormality. Thank you for allowing us to participate in the care of your patient. Dictated and Authenticated by: Seth Mcfarland MD 08/15/2023 7:28 PM Eastern Time ([place] & [place]) Quality:SDOH Health Related Social Needs: Health related social needs inadequate housing Health related social needs details Not answered PFSH All Active Problems (Updated 08/15/23 @ 19:31 by Yuri Contreras DO) Plantar fasciitis (Acute) Ex-smoker (Acute) Emphysema of lung (Acute) Shortness of breath (Acute) GERD (gastroesophageal reflux disease) (Chronic) Restless leg syndrome (Acute) Tobacco use disorder (Chronic) Started at age 18, 1/2 ppd Medical History Corneal rust ring of right eye Abrasion of cornea, right Eye foreign body Family History Mother Depression Diabetes Hypertension Maternal Grandfather Diabetes Hypertension Paternal Grandfather Heart disease Hypertension Maternal Grandmother Heart disease Hypertension Paternal Grandmother Hypertension Father Hypertension Social History Smoking/Tobacco Use Status: Former Tobacco Use tobacco type: cigarettes Quit Date: 08/18/22 Tobacco: How many years used: 30 Smoking risk assessment performed?: Yes Alcohol Intake: former Drug use: Rarely Substance use type: marijuana Adopted: No Caregiver/Support person: No Foster care: No Household members: family Housing: apartment Number of Children: 5 number of grandchildren: 4 Communication Needs: Corrective Lenses Education Level: middle school Do you need help understanding health information?: Never current occupation: [employer] Pets and animals: Yes (1 dog, 1 cat, 2 guinea pigs) Pets and animals: cat(s) and dog(s) Sexually active: Yes Do you think of yourself as: straight/heterosexual Current gender identity: male What is your relationship status?: living with partner How often do you talk on the phone with friends or family?: never How often do you get together with friends or relatives?: once per week Do you belong to any clubs or organized social groups?: no Panel score (0-1 are the most socially isolated patients): 1 What type of physical activity do you participate in: walking Duration: 30-45 minutes/day Frequency: 1-2 times per week Rima/Sabianist: None Seatbelt use: never Helmet use: Yes Helmet use: always Drive intox or ride w/intox 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
--- NOTE | 2023-08-15 19:29 | DI.VRAD_ITS ---
PROCEDURE INFORMATION: Exam: XR Left Foot Exam date and time: 08/15/2023 6:52 PM Age: 53 years old Clinical indication: Pain; Foot; Left; Additional info: Pain at plantar fascia and calc. TECHNIQUE: Imaging protocol: Radiologic exam of the left foot. Views: 3 or more views. COMPARISON: No relevant prior studies available. FINDINGS: Bones/joints: Osseous alignment is normal. No acute fracture or significant arthritic change. Mild plantar calcaneal spurring. Mild enthesophyte formation of the Achilles tendon attachment. Soft tissues: Normal. IMPRESSION: Mild calcaneal spurring. No acute abnormality. Dictated and Authenticated by: Seth Mcfarland MD. Ordering:SHUN Welch MD
== END 2023-08-15 20:04 | disposition home or self-care (01) ==
PROVIDERS: Emergency Provider Student in an Organized Health Care Education/Training Program; PCP Family Medicine
DX: M72.2 Plantar fascial fibromatosis (principal); M77.32 Calcaneal spur, left foot; Z87.891 Personal history of nicotine dependence
CPT/HCPCS: 99283; 73630

== ENCOUNTER 2023-10-02 07:17 | Emergency (ER) | payer BC, SELFPAY | END 2023-10-02 10:50 | disposition home or self-care (01) | LOC: ER 11:10 | PROVIDERS: Emergency Provider Emergency Medicine; PCP Family Medicine | DX: R68.84 Jaw pain (principal); K04.7 Periapical abscess without sinus | CPT/HCPCS: 99283 ==

== ENCOUNTER 2024-01-13 11:10 | Emergency (ER) | payer BC, SELFPAY ==
[2024-01-13 11:12] VITALS: BP 115/83; PULSE 73; O2SAT 94
[2024-01-13] MEDS: Clindamycin 300 MG CAP PO (12:11)
--- NOTE | 2024-01-13 12:27 | W.ED.GENAD ---
Discharge Plan Disposition Patient Disposition: Home Condition: Stable Discharge Details Clinical Impression: Cellulitis Primary Care Provider: Kenney Saleh ED Provider: Trevin Smith Home Meds and New Rx's Prescriptions: New clindamycin HCl 300 mg capsule 300 mg PO TID 5 Days Qty: 15 0RF No Action pantoprazole [Protonix] 20 mg tablet,delayed release (DR/EC) 20 mg PO DAILY Qty: 90 3RF ropinirole 0.5 mg tablet 0.5 mg PO HS Qty: 90 3RF acetaminophen 500 mg capsule 800 mg PO Q8H PRN calcium carbonate [Tums] 200 mg calcium (500 mg) tablet,chewable 200 mg PO BID PRN Patient Comments: No longer taking 08/12/22 CT Discharge Instructions Instructions: Cellulitis (Skin Infection), Adult ED Additional Instructions: Please follow-up with your primary care physician. Please return to the emergency department for any worsening symptoms Stand Alone Forms: Work Release HPI General Date/Time Provider Initiated Documentation: 01/13/24 11:23. HPI Narrative: 53-year-old male prior history of MRSA presents with oozing red rash on right forearm as well as left knuckle and left lower back denies fevers chills nausea vomiting or other systemic signs of illness Related Data Home Medications ?Medication ?Instructions ?Recorded ?Confirmed calcium carbonate (Tums) 200 mg PO BID PRN 11/09/21 01/13/24 pantoprazole 20 mg tablet,delayed 20 mg PO DAILY #90 tabs 08/12/23 01/13/24 release (Protonix) ropinirole 0.5 mg tablet 0.5 mg PO HS #90 tabs 08/12/23 01/13/24 acetaminophen 500 mg capsule 800 mg PO Q8H PRN 10/17/23 01/13/24 clindamycin HCl 300 mg capsule 300 mg PO TID 5 days #15 caps 01/13/24 Previous Rx's ?Medication ?Instructions ?Recorded pantoprazole 20 mg tablet,delayed 20 mg PO DAILY #90 tabs 08/12/23 release (Protonix) ropinirole 0.5 mg tablet 0.5 mg PO HS #90 tabs 08/12/23 clindamycin HCl 300 mg capsule 300 mg PO TID 5 days #15 caps 01/13/24 Allergies Allergy/AdvReac Type Severity Reaction Status Date / Time Penicillins Allergy Severe Anaphylaxis Unverified 01/13/24 11:15 vinegar Allergy Severe hives/nause Uncoded 01/13/24 11:15 a General Stated Complaint: RashLesion RADHA: 3 Exam Narrative Exam Narrative: Alert oriented Moist mucous membranes tongue secretions Normal voice no respiratory distress Superficial erythematous region approximately 2.5 cm in diameter right forearm with some spontaneous purulent exudate, small dry erythematous lesion to left knuckle, small dry red erythematous lesion to posterior left back Neurovascular exam of limbs intact Patient moving all extremities without deficit no signs of joint effusion, no lymphangitic streaking Course Vital Signs Vital signs: Vital Signs Pulse 73 01/13/24 11:12 Blood Pressure 115/83 01/13/24 11:12 Pulse Oximetry 94 01/13/24 11:12 Pulse 73 01/13/24 11:12 Respiratory Effort Normal, Non-Labored 01/13/24 11:16 Blood Pressure 115/83 01/13/24 11:12 Blood Pressure Position Sitting 01/13/24 11:12 Pulse Oximetry 94 01/13/24 11:12 Oxygen Delivery Method Room Air 01/13/24 11:12 Oxygen Flow Rate 0 01/13/24 11:12 Medical Decision Making 53-year-old male presents with likely multiple areas of folliculitis versus small localized cellulitis, history of MRSA, patient is nontoxic hemodynamically stable. No evidence of joint involvement. No evidence of lymphangitic streaking. No evidence of trauma. Will start on clindamycin given patient's penicillin allergy and history of MRSA. Home care instructions and strict return precautions given Quality:SDOH Health Related Social Needs: Health related social needs inadequate housing Health related social needs details Not answered PFSH All Active Problems (Updated 01/13/24 @ 12:24 by Trevin Smith MD) Cellulitis (Acute) Plantar fasciitis, left (Acute) Ex-smoker (Acute) Emphysema of lung (Acute) Shortness of breath (Acute) GERD (gastroesophageal reflux disease) (Chronic) Restless leg syndrome (Acute) Tobacco use disorder (Chronic) Started at age 18, 1/2 ppd Medical History Corneal rust ring of right eye Abrasion of cornea, right Eye foreign body Family History Mother Depression Diabetes Hypertension Maternal Grandfather Diabetes Hypertension Paternal Grandfather Heart disease Hypertension Maternal Grandmother Heart disease Hypertension Paternal Grandmother Hypertension Father Hypertension Social History Smoking/Tobacco Use Status: Former Tobacco Use tobacco type: cigarettes Quit Date: 08/18/22 Tobacco: How many years used: 30 Smoking risk assessment performed?: Yes Alcohol Intake: former Drug use: Occasionally Substance use type: marijuana Adopted: No Caregiver/Support person: No Foster care: No Household members: family Housing: apartment Number of Children: 5 number of grandchildren: 4 Communication Needs: Corrective Lenses Education Level: middle school Do you need help understanding health information?: Never current occupation: [employer] Pets and animals: Yes (1 dog, 1 cat, 2 guinea pigs) Pets and animals: cat(s) and dog(s) Sexually active: Yes Do you think of yourself as: straight/heterosexual Current gender identity: male What is your relationship status?: living with partner How often do you talk on the phone with friends or family?: never How often do you get together with friends or relatives?: once per week Do you belong to any clubs or organized social groups?: no Panel score (0-1 are the most socially isolated patients): 1 What type of physical activity do you participate in: walking Duration: 30-45 minutes/day Frequency: 1-2 times per week Rima/Taoism: None Seatbelt use: never Helmet use: Yes Helmet use: always Drive intox or ride w/intox flag car driver: No Do you feel safe at home: Yes Do you feel safe in your relationship?: Yes
[2024-01-13 12:35] VITALS: BP 118/83; PULSE 83; RESP 15; TEMP 36.5; O2SAT 96
== END 2024-01-13 12:37 | disposition home or self-care (01) ==
PROVIDERS: Emergency Provider Emergency Medicine; PCP Family Medicine
DX: L03.113 Cellulitis of right upper limb (principal); L03.114 Cellulitis of left upper limb; L03.312 Cellulitis of back [any part except buttock and flank]
CPT/HCPCS: 99283

== ENCOUNTER 2024-05-11 14:40 | Emergency (ER) | payer BC, SELFPAY ==
[2024-05-11 14:44] VITALS: BP 108/84; PULSE 90; RESP 18; TEMP 37; O2SAT 99
--- NOTE | 2024-05-11 14:45 | DI.RAD_ITS ---
Exam(s) XR CHEST 2V PA LATERAL EXAM: XR CHEST 2V PA LATERAL CLINICAL HISTORY: 4 days cough, sob, recent PNA exposure TECHNIQUE: 2D digital imaging was performed. Two views. COMPARISON: CR XR PORTABLE CHEST AP from 08/12/2022 CR XR CHEST 2V PA LATERAL from 08/22/[address] CHEST WO from 10/07/2022 FINDINGS: Suboptimal pulmonary inflation on the lateral view. HEART: Normal size. Aorta: Not dilated. PULMONARY VASCULATURE: Normal. MEDIASTINUM: Unremarkable. LUNGS: No evidence of focal infiltrate. Upper lobe emphysematous changes and scarring. PLEURAL SPACE: No pleural effusion or pneumothorax. BONE:Unremarkable for age. SOFT TISSUES: Unremarkable. IMPRESSION: No acute abnormality. DATA REPOSITORY: RADIATION DOSE DELIVERED:
--- NOTE | 2024-05-11 15:08 | ED.GENADUL_ITS ---
Discharge Plan Disposition Patient Disposition: Home Condition: Stable Discharge Details Clinical Impression: Influenza A, Emphysema of lung, Ex-smoker, GERD (gastroesophageal reflux disease) Primary Care Provider: Kenney Saleh ED Provider: Gissel Mckinney Home Meds and New Rx's Prescriptions: New benzonatate 100 mg capsule 100 mg PO TID PRNQty: 14 0RF No Action pantoprazole [Protonix] 20 mg tablet,delayed release (DR/EC) 20 mg PO DAILY Qty: 90 3RF ropinirole 0.5 mg tablet 0.5 mg PO HS Qty: 90 3RF acetaminophen 500 mg capsule 800 mg PO Q8H PRN calcium carbonate [Tums] 200 mg calcium (500 mg) tablet,chewable 200 mg PO BID PRN Patient Comments: No longer taking 08/12/22 CT Discharge Instructions Instructions: Flu, Adult ED Additional Instructions: You were seen in the emergency department today for evaluation of cough and bodyaches and were found to have influenza A. In our department you have a full physical examination performed, and had an x-ray that did not show any sign of pneumonia. We did discuss using the medication Tamiflu and at this time you have decided to hold off and see how you feel in the next few days. I did provide you with a prescription for Tessalon Perles for your cough, and recommend following up with your primary care provider in the next few days to discuss this visit and any symptoms that change, worsen, persist. Thank you for allowing us to be part of your care. Stand Alone Forms: Work Release HPI General Mode of arrival: ambulatory . Date/Time Provider Initiated Documentation: 05/11/24 14:43 . Limitations to Documentation: no limitations . Information obtained by: patient and old records reviewed . HPI Narrative: HPI: This is a 54-year-old male patient with a past medical history significant for emphysema, recent ex-smoker, presenting for evaluation of bodyaches and congestion. He reports that this started last night, and he is concerned that he is developing pneumonia or some sort of virus. States that he has not had any known sick contacts, has been able to eat and drink normally, took Tylenol and ibuprofen last night to good effect. States that he is otherwise in his normal state of health, does not use any nebulizers or and inhalers for management of his mild emphysema. Exam: Gen: Awake and alert, in no apparent distress HEENT: Non-icteric sclera Neck: Supple Lungs: No apparent respiratory distress, normal respiratory effort. Lung sounds clear and equal bilaterally without wheezes, rhonchi, rales CV: Appears well perfused, heart with regular rate and rhythm, strong distal pulses, no murmurs auscultated Abdomen: Non-distended MSK: Moves 4 extremities without apparent limitation in ROM Skin: Visualized skin without rashes, cyanosis. Neuro: Normal Gait, no obvious focal deficits or facial asymmetry. Speaks in full, clear sentences. Psych: Appropriate for situation. MDM: This is a 54-year-old male patient presenting for evaluation of 1 day of bodyaches and congestion with cough. Differential includes but is not limited to viral upper respiratory infection, pneumonia, bronchitis. I certainly considered reactive airway disease exacerbation that this patient is without focal lung findings or hypoxia to significantly increase my concern for same. No chest pain to suggest ACS, no evidence of fluid overload to suggest pulmonary edema or pleural effusion. No tachycardia or pleuritic chest pain to suggest PE. Tolerating p.o. and I have a low concern for metabolic and electrolyte derangement, kidney injury. We will obtain a Fluvid swab as well as a chest x-ray. The patient is not desiring of any medications for management of bodyaches at this time. ED Course: Fluvid positive for influenza A, x-ray without evidence of focal consolidation concerning for pneumonia. I did have a discussion with this patient regarding Tamiflu given the brief duration of symptoms but the patient declines this medication at this time. I did provide him with a short course of Tessalon Perles at his request for cough management, and at this time, the patient has had a full medical evaluation and is safe for discharge to home. They are hemodynamically stable, ambulatory, and tolerating PO. They are understanding of the follow-up plan and return precautions. They left our facility without incident. Gissel Mckinney MD Related Data Home Medications ?Medication ?Instructions ?Recorded ?Confirmed calcium carbonate (Tums) 200 mg PO BID PRN 11/09/21 05/11/24 pantoprazole 20 mg tablet,delayed 20 mg PO DAILY #90 tabs 08/12/23 05/11/24 release (Protonix) ropinirole 0.5 mg tablet 0.5 mg PO HS #90 tabs 08/12/23 05/11/24 acetaminophen 500 mg capsule 800 mg PO Q8H PRN 10/17/23 05/11/24 benzonatate 100 mg capsule 100 mg PO TID PRN #14 caps 05/11/24 Previous Rx's ?Medication ?Instructions ?Recorded pantoprazole 20 mg tablet,delayed 20 mg PO DAILY #90 tabs 08/12/23 release (Protonix) ropinirole 0.5 mg tablet 0.5 mg PO HS #90 tabs 08/12/23 benzonatate 100 mg capsule 100 mg PO TID PRN #14 caps 05/11/24 Allergies Allergy/AdvReac Type Severity Reaction Status Date / Time Penicillins Allergy Severe Anaphylaxis Unverified 05/11/24 14:45 vinegar Allergy Severe hives/nause Uncoded 05/11/24 14:45 a General Stated Complaint: RespSymp RADHA: 4 Course Vital Signs Vital signs: Vital Signs Temperature 37.0 C 05/11/24 14:44 Pulse 90 05/11/24 14:44 Respiratory Rate 18 05/11/24 14:44 Blood Pressure 108/84 05/11/24 14:44 Pulse Oximetry 99 05/11/24 14:44 Temperature 37.0 C 05/11/24 14:44 Temperature Source Temporal Artery Scan 05/11/24 14:44 Pulse 90 05/11/24 14:44 Respiratory Rate 18 05/11/24 14:44 Blood Pressure 108/84 05/11/24 14:44 Blood Pressure Position Supine 05/11/24 14:44 Pulse Oximetry 99 05/11/24 14:44 Oxygen Delivery Method Room Air 05/11/24 14:44 Oxygen Flow Rate 0 05/11/24 14:44 Medical Decision Making Quality:SDOH Health Related Social Needs: Health related social needs details Not answered PFSH All Active Problems (Updated 05/11/24 @ 16:12 by Gissel Mckinney MD) Influenza A (Acute) Plantar fasciitis, left (Acute) Ex-smoker (Acute) Emphysema of lung (Acute) Shortness of breath (Acute) GERD (gastroesophageal reflux disease) (Chronic) Restless leg syndrome (Acute) Tobacco use disorder (Chronic) Started at age 18, 1/2 ppd Medical History Corneal rust ring of right eye Abrasion of cornea, right Eye foreign body Family History Mother Depression Diabetes Hypertension Maternal Grandfather Diabetes Hypertension Paternal Grandfather Heart disease Hypertension Maternal Grandmother Heart disease Hypertension Paternal Grandmother Hypertension Father Hypertension Social History Smoking/Tobacco Use Status: Former Tobacco Use tobacco type: cigarettes Quit Date: 08/18/22 Tobacco: How many years used: 30 Smoking risk assessment performed?: Yes Alcohol Intake: former Drug use: Occasionally Substance use type: marijuana Adopted: No Caregiver/Support person: No Foster care: No Household members: family Housing: apartment Number of Children: 5 number of grandchildren: 4 Communication Needs: Corrective Lenses Education Level: middle school Do you need help understanding health information?: Never current occupation: [employer] Pets and animals: Yes (1 dog, 1 cat, 2 guinea pigs) Pets and animals: cat(s) and dog(s) Sexually active: Yes Do you think of yourself as: straight/heterosexual Current gender identity: male What is your relationship status?: living with partner How often do you talk on the phone with friends or family?: never How often do you get together with friends or relatives?: once per week Do you belong to any clubs or organized social groups?: no Panel score (0-1 are the most socially isolated patients): 1 What type of physical activity do you participate in: walking Duration: 30-45 minutes/day Frequency: 1-2 times per week Rima/Uatsdin: None Seatbelt use: never Helmet use: Yes Helmet use: always Drive intox or ride w/intox reach lift truck driver: No Do you feel safe at home: Yes Do you feel safe in your relationship?: Yes
[2024-05-11 16:07] LABS: COVID-19 PCR Negative (Negative); Influenza A PCR Positive (Negative); Influenza B PCR Negative (Negative); RSV PCR Negative (Negative)
[2024-05-11 16:09] LABS: Source NASOPHARYNX
== END 2024-05-11 16:33 | disposition home or self-care (01) ==
PROVIDERS: Emergency Provider Emergency Medicine; PCP Family Medicine
DX: J10.1 Influenza due to other identified influenza virus with other respiratory manifestations (principal); J43.9 Emphysema, unspecified; K21.9 Gastro-esophageal reflux disease without esophagitis; Z87.891 Personal history of nicotine dependence
CPT/HCPCS: 87637; 99283; 71046

== ENCOUNTER 2024-06-22 16:01 | Emergency (ER) | payer BC, SELFPAY ==
[2024-06-22 16:14] VITALS: BP 132/86; PULSE 93; RESP 20; TEMP 36.3; O2SAT 93
--- NOTE | 2024-06-22 16:15 | DI.RAD_ITS ---
Exam(s) XR ANKLE LT COMPLETE EXAM: XR ANKLE LT COMPLETE CLINICAL HISTORY: fall and twisted TECHNIQUE: 2D digital imaging was performed. Three views. COMPARISON: No exams were available for comparison FINDINGS: BONES: No acute fracture is present. No bony destructive lesion is seen. Heel spurs. Ossicle adjac ent to cuboid. JOINTS:The ankle mortise is normally aligned. No significant joint space narrowing. Mild spurring at the anterior tibial plafond. SOFT TISSUE: Swelling greatest around lateral malleolus. IMPRESSION: Soft tissue swelling. No acute abnormality. DATA REPOSITORY: RADIATION DOSE DELIVERED:
--- NOTE | 2024-06-22 16:23 | W.ED.GENAD ---
Discharge Plan Disposition Patient Disposition: Home Condition: Improving Discharge Details Clinical Impression: Left ankle sprain Primary Care Provider: Kenney Saleh ED Provider: Jaskaran Peres Meds and New Rx's Prescriptions: New naproxen 375 mg tablet 375 mg PO BID PRN (Reason: pain) Qty: 30 0RF Continued pantoprazole [Protonix] 20 mg tablet,delayed release (DR/EC) 20 mg PO DAILY Qty: 90 3RF ropinirole 0.5 mg tablet 0.5 mg PO HS Qty: 90 3RF acetaminophen 500 mg capsule 800 mg PO Q8H PRN calcium carbonate [Tums] 200 mg calcium (500 mg) tablet,chewable 200 mg PO BID PRN Patient Comments: No longer taking 08/12/22 CT Discharge Instructions Instructions: Ankle sprain Referrals: [facility] [Provider Group] (call in one week for appointment) Discharge Data Discharge Physician: Jaskaran Peres HPI General Date/Time Provider Initiated Documentation: 06/22/24 16:23. HPI Narrative: Patient presents emergency department after he twisted his left ankle when he was coming out of work. Complaining of swelling and tenderness to the lateral aspect of the left ankle and painful to bear weight this happened 3 hours ago Related Data Home Medications ?Medication ?Instructions ?Recorded ?Confirmed calcium carbonate (Tums) 200 mg PO BID PRN 11/09/21 06/22/24 pantoprazole 20 mg tablet,delayed 20 mg PO DAILY #90 tabs 08/12/23 06/22/24 release (Protonix) ropinirole 0.5 mg tablet 0.5 mg PO HS #90 tabs 08/12/23 06/22/24 acetaminophen 500 mg capsule 800 mg PO Q8H PRN 10/17/23 06/22/24 naproxen 375 mg tablet 375 mg PO BID PRN pain #30 tabs 06/22/24 Previous Rx's ?Medication ?Instructions ?Recorded pantoprazole 20 mg tablet,delayed 20 mg PO DAILY #90 tabs 08/12/23 release (Protonix) ropinirole 0.5 mg tablet 0.5 mg PO HS #90 tabs 08/12/23 naproxen 375 mg tablet 375 mg PO BID PRN pain #30 tabs 06/22/24 Allergies Allergy/AdvReac Type Severity Reaction Status Date / Time Penicillins Allergy Severe Anaphylaxis Unverified 06/22/24 16:16 vinegar Allergy Severe hives/nause Uncoded 06/22/24 16:16 a General Stated Complaint: Orthopedic RADHA: 4 Review of Systems Narrative: Review of Systems: Constitutional: No fevers, chills, sweats Eye: No recent visual problems ENT: No ear pain, nasal congestion, sore throat Respiratory: No shortness of breath, cough Cardiovascular: No Chest pain, palpitations, syncope Gastrointestinal: No nausea, vomiting, diarrhea Genitourinary: No hematuria Jovi/Lymph: Negative for bruising tendency, swollen lymph glands Endocrine: Negative for excessive thirst, excessive hunger Musculoskeletal: No back pain, neck pain, Integumentary: No rash, pruritus, abrasions Neurologic: Alert & oriented X 4 Psychiatric: No anxiety, depression Exam Narrative Exam Narrative: Exam; vitals signs as reported above normal Constitutional; In no acute distress, afebrile General: cooperative, healthy appearing, comfortable and no acute distress HEENT: Head: normal to inspection, no palpable skull fracture and normocephalic atraumatic Eyes: : appearance normal, both eyes and all related structures EOM intact bilaterally Pupils: PERRL : conjunctiva normal Direct ophthalmoscopy: normal light reflex, normal conjunctiva, normal visual acuity Ears: Normal TM, normal external canal Nose: normal no rhinorreha Neck no JVD, supple non tender Neck: normal visual inspection, full ROM and no lymphadenopathy Chest: normal inspection of the chest Respiratory : normal respiratory effort and able to speak in complete sentences no wheezing no rales Cardio Rate: regular rate, rhythm: regular rhythm normal heart sounds S1 and S2 no murmurs, gallops, or rubs GI : normal to inspection, normal bowel sounds, soft, non tender, non distended, no organomegaly Back/Spine/ no CVA tenderness Thoracic/Lumbar Spine: no tenderness or deformities Skin no rashes or lesions Neuro: patient alert oriented x 4 and no meningeal signs, Cranial Nerves: CN's II-XI intact bilaterally, Cognition: normal cognition, Speech: speech normal, Gait: normal gait, Depp tendon reflexes normal 2+ muscle strength 5/5 bilaterally Extremities, swelling and tenderness to the lateral aspect of the left ankle at the level of the lateral malleolus with full range of motion Course Vital Signs Vital signs: Vital Signs Temperature 36.3 C L 06/22/24 16:14 Pulse 93 H 06/22/24 16:14 Respiratory Rate 20 06/22/24 16:14 Blood Pressure 132/86 06/22/24 16:14 Pulse Oximetry 93 06/22/24 16:14 Temperature 36.3 C L 06/22/24 16:14 Pulse 93 H 06/22/24 16:14 Respiratory Rate 20 06/22/24 16:14 Blood Pressure 132/86 06/22/24 16:14 Blood Pressure Position Sitting 06/22/24 16:14 Pulse Oximetry 93 06/22/24 16:14 Oxygen Delivery Method Room Air 06/22/24 16:14 Oxygen Flow Rate 0 06/22/24 16:14 Medical Decision Making MDM: Summary: Patient fell twisting his left ankle with swelling to the lateral aspect of the ankle. X-rays do not show any fracture most likely has a ligamentous injury or sprain. He will be placed on an Aircast and crutches and will be discharged home with follow-up with Ortho if needed Data Review Analysis All the data on this patient was reviewed by me including laboratory and imaging studies as well as bedside studies performed by me Independent review of Studies Imaging X-ray does not show any abnormality Lab: Risk Stratification: Patient with a twisted ankle who can be safely discharged home with follow-up Differential Diagnosis: 1. Ankle sprain 2. Ankle fracture 3. Ankle dislocation 4. 5. Consultants: Shared disposition: Patient understands disposition will do accordingly Impression: Imaging Data Radiologic Study: Attestation: I personally reviewed and interpreted this imaging study as follows: Imaging: X-Ray My impression: No fracture just soft tissue swelling Radiologist's impression: Launch?Image Patient Name: Jr Israel III Unit #: [id number] Loc: ER Ordering Provider: Jaskaran Peres M.D. Status: [facility] ER Primary Care Provider: Kenney Saleh DO Date of Exam: 06/22/24 Sex: M Admission Date: 06/22/24 : 1970 Age: 54 Exam(s) XR ANKLE LT COMPLETE EXAM: XR ANKLE LT COMPLETE CLINICAL HISTORY: fall and twisted TECHNIQUE: 2D digital imaging was performed. Three views. COMPARISON: No exams were available for comparison FINDINGS: BONES: No acute fracture is present. No bony destructive lesion is seen. Heel spurs. Ossicle adjacent to cuboid. JOINTS:The ankle mortise is normally aligned. No significant joint space narrowing. Mild spurring at the anterior tibial plafond. SOFT TISSUE: Swelling greatest around lateral malleolus. IMPRESSION: Soft tissue swelling. No acute abnormality. DATA REPOSITORY: RADIATION DOSE DELIVERED: Ordered By: Jaskaran Peres M.D. CC: Dictated By: Rhoda Ramirez M.D. 06/22/241654 <Electronically signed by Rhoda Ramirez M.D. in OV> 06/22/241654 Transcribed By: Rhoda Ramirez 06/22/241654 This is privileged, confidential information intended only for the provider named. Any use or distribution by any person other than this provider is strictly prohibited. If you receive this report in error, please notify u Quality:SDOH Health Related Social Needs: Health related social needs details Not answered PFSH All Active Problems (Updated 06/22/24 @ 17:10 by Jaskaran Peres MD) Left ankle sprain (Acute) Plantar fasciitis, left (Acute) Ex-smoker (Acute) Emphysema of lung (Acute) Shortness of breath (Acute) GERD (gastroesophageal reflux disease) (Chronic) Restless leg syndrome (Acute) Tobacco use disorder (Chronic) Started at age 18, 1/2 ppd Medical History Corneal rust ring of right eye Abrasion of cornea, right Eye foreign body Family History Mother Depression Diabetes Hypertension Maternal Grandfather Diabetes Hypertension Paternal Grandfather Heart disease Hypertension Maternal Grandmother Heart disease Hypertension Paternal Grandmother Hypertension Father Hypertension Social History Smoking/Tobacco Use Status: Former Tobacco Use tobacco type: cigarettes Quit Date: 08/18/22 Tobacco: How many years used: 30 Smoking risk assessment performed?: Yes Alcohol Intake: former Drug use: Occasionally Substance use type: marijuana Adopted: No Caregiver/Support person: No Foster care: No Household members: family Housing: apartment Number of Children: 5 number of grandchildren: 4 Communication Needs: Corrective Lenses Education Level: middle school Do you need help understanding health information?: Never current occupation: [employer] Pets and animals: Yes (1 dog, 1 cat, 2 guinea pigs) Pets and animals: cat(s) and dog(s) Sexually active: Yes Do you think of yourself as: straight/heterosexual Current gender identity: male What is your relationship status?: living with partner How often do you talk on the phone with friends or family?: never How often do you get together with friends or relatives?: once per week Do you belong to any clubs or organized social groups?: no Panel score (0-1 are the most socially isolated patients): 1 What type of physical activity do you participate in: walking Duration: 30-45 minutes/day Frequency: 1-2 times per week Rima/Zoroastrianism: None Seatbelt use: never Helmet use: Yes Helmet use: always Drive intox or ride w/intox haul truck driver: No Do you feel safe at home: Yes Do you feel safe in your relationship?: Yes
[2024-06-22] MEDS: Ketorolac 30 MG/ML VIAL IM (17:21)
[2024-06-22] MEDS: Bacitracin 1 PACKET (17:36)
--- NOTE | 2024-08-16 14:45 | NUR.NOTE ---
Accessed Pt chart to obtain Primary Care Provider for a refill request. Faxed document to [facility] for Dr Saleh
== END 2024-06-22 17:44 | disposition home or self-care (01) ==
PROVIDERS: Emergency Provider Emergency Medicine Emergency Medical Services; PCP Family Medicine
DX: S93.402A Sprain of unspecified ligament of left ankle, initial encounter (principal); X50.1XXA Overexertion from prolonged static or awkward postures, initial encounter; Y93.01 Activity, walking, marching and hiking; Y92.89 Other specified places as the place of occurrence of the external cause
CPT/HCPCS: 96372; 99284; 73610; 99283; J1885

== ENCOUNTER 2024-11-09 14:47 | Emergency (ER) | payer OTHER, SELFPAY ==
[2024-11-09 15:00] VITALS: BP 134/90; PULSE 104; RESP 20; TEMP 36.7; O2SAT 98
--- NOTE | 2024-11-09 15:00 | DI.RAD_ITS ---
Exam(s) XR HAND RT COMPLETE EXAM: XR HAND RT COMPLETE CLINICAL HISTORY: hand injury. TECHNIQUE: 2D digital imaging was performed. Three views. COMPARISON: CR RIGHT HAND COMPLETE from 12/02/2016 FINDINGS: BONES: There is a mildly displaced fracture at the neck of the 4th metacarpal. There is minimal angulation there is slight deformity of the 5th metacarpal, likely related to an old fracture.. No bony destructive lesion is seen. JOINTS: No dislocation present. SOFT TISSUE: Normal. IMPRESSION: Fracture of the 4th metacarpal head. DATA REPOSITORY: RADIATION DOSE DELIVERED:
--- NOTE | 2024-11-09 15:24 | ED.GENADUL_ITS ---
Discharge Plan Disposition Patient Disposition: Home Condition: Stable Discharge Details Clinical Impression: Closed fracture of fourth metacarpal bone of right hand Primary Care Provider: Kenney Saleh ED Provider: Yuri Mccarty Home Meds and New Rx's Prescriptions: No Action acetaminophen 500 mg capsule 800 mg PO Q8H PRN calcium carbonate [Tums] 200 mg calcium (500 mg) tablet,chewable 200 mg PO BID PRN Patient Comments: No longer taking 08/12/22 CT naproxen 375 mg tablet 375 mg PO BID PRN (Reason: pain) Qty: 30 0RF omeprazole magnesium [Acid Production Broaching Machine Operator (omeprazole)] 20 mg capsule,delayed release(DR/EC) 20 mg PO DAILY Discharge Instructions Instructions: Hand Fracture ED Additional Instructions: You were seen in the emergency department for the fracture of the head of the fourth metacarpal bone, you need to see orthopedics in the short-term for more definitive casting, please rest, ice, compress and elevate through the splint, ice to complete numbness then let rewarm. Please use therapeutic dosing of Tylenol (acetamenophen) & Advil (ibuprofen) in an alternating fashion as follows: Take 1000mg of Tylenol every 6 hours without missing doses- that is 4 times per day. [place] in between the Tylenol dosings, take 400-600mg of Advil also on a 6 hour schedule, that is also 4 times per day. The daily maximum dosing of Tylenol is 4000mg, and the daily maximum dosing of Advil is 2400mg. This is safe to do for weeks. Please note that some common cold medications & prescription pain medications may contain acetamenophen and you need to read OTC drug labels and factor that in to maximum daily dosings. Please return for any signs of complete neurovascular compromise to the 4th or 5th fingers or any other emergent concerns. Stand Alone Forms: Work Release Referrals: [facility] [Provider Group] Kenney Saleh DO [Primary Care Provider, Medicine] Discharge Data Discharge Date/Time-TO BE ENTERED AT DEPARTURE: 11/09/24 17:00 HPI General Date/Time Provider Initiated Documentation: 11/09/24 15:07 . HPI Narrative: 54 year-old male presents to ED today by POV/ambulating with a chief complaint of R hand injury- heavy industrial part ~70lbs fell 3 feet onto his R hand yesterday around 0700, persistently swollen. Quality described as pain and swelling in the hand, but was able to go to work today, no radiation to numbness/tingling, bruising, proximal wrist pain. Severity is described as mild to moderate. Palliating factors include nothing specific needed. Provoking factors include certain movements. Events leading up to the incident/Associated Symptoms: Patient is L-hand dominant. Patient not anticoagulated. Related Data Home Medications ?Medication ?Instructions ?Recorded ?Confirmed calcium carbonate (Tums) 200 mg PO BID PRN 11/09/21 0 11/09/24 acetaminophen 500 mg capsule 800 mg PO Q8H PRN 4 11/09/24 naproxen 375 mg tablet 375 mg PO BID PRN pain #30 t abs 08/19/24 11/09/24 omeprazole magnesium 20 mg 20 mg PO DAILY 11/09/24 capsule,delayed release (Acid Production Broaching Machine Operator (omeprazole)) Previous Rx's ?Medication ?Instructions ?Recorded naproxen 375 mg tablet 375 mg PO BID PRN pain #30 t abs 08/19/24 Allergies Allergy/AdvReac Type Severity Reaction Status Date / Time Penicillins Allergy Severe Anaphylaxis Verified 11/09/24 15:06 vinegar Allergy Severe hives/nause Uncoded 11/09/24 15:06 a General Stated Complaint: Orthopedic RADHA: 3 Review of Systems All systems reviewed & are unremarkable except as noted in HPI and below Exam Narrative Exam Narrative: GENERAL APPEARANCE: Well-nourished, non-toxic, awake and alert, atraumatic, no acute distress. SKIN: Warm, pink, dry, intact, without rashes/lesions/ulcerations. HEAD: Normocephalic, atraumatic, normal hair distribution for gender/age. EYES: Normal conjunctiva, no exudates on lids/lashes. ENT: Nares patent, no circumoral cyanosis, no facial swelling NECK: Supple, trachea midline, painless cervical ROM. LUNGS/CHEST: Non-labored respirations, normal A/P diameter, symmetrical expansion, no chest wall deformity HEART (CV/PV): No peripheral edema, no JVD. ABDOMEN: Soft, non-distended, no guarding. MSK: Normal ROM, no swelling/deformity to bilateral UEs or LEs, moving all extremities without weakness, no cyanosis, spine midline without tenderness, normal curvature. R HAND: tenderness and swelling diffusely to the ulnar aspect of the right hand, minimal range of motion and causes pain, sensation intact in both 4th and 5th fingers, no crepitus, no ecchymosis, no anatomical snuffbox tenderness, full range of motion at the wrist NEURO: Mental Status AAOx4 - alert to person, place, time, events No facial droop, no forehead involvement. Motor: No focal weakness - strength 5/5 in bilateral UEs and LEs, proximal and distal, symmetric. Sensory: sensation intact to light touch globally. Gait normal: patient ambulated without ataxia into ED room. PSYCH: euthymic, cooperative, pleasant, appropriate speech Course Vital Signs Vital signs: Vital Signs Temperature 36.7 C 11/09/24 15:00 Pulse 104 H 11/09/24 15:00 Respiratory Rate 20 11/09/24 15:00 Blood Pressure 134/90 11/09/24 15:00 Pulse Oximetry 98 11/09/24 15:00 Temperature 36.7 C 11/09/24 15:00 Temperature Source Oral 11/09/24 15:00 Pulse 104 H 11/09/24 15:00 Respiratory Rate 20 11/09/24 15:00 Blood Pressure 134/90 11/09/24 15:00 Blood Pressure Position Sitting 11/09/24 15:00 Pulse Oximetry 98 11/09/24 15:00 Oxygen Delivery Method Room Air 11/09/24 15:00 Oxygen Flow Rate 0 11/09/24 15:00 Medical Decision Making This dictation utilizes [id number] dictation software and may contain unedited grammatical errors. 54 year-old male presents to ED today by POV/ambulating with a chief complaint of R hand injury- heavy industrial part ~70lbs fell 3 feet onto his R hand yesterday around 0700, persistently swollen. Quality described as pain and swelling in the hand, but was able to go to work today, no radiation to numbness/tingling, bruising, proximal wrist pain. Severity is described as mild to moderate. Palliating factors include nothing specific needed. Provoking factors include certain movements. Events leading up to the incident/Associated Symptoms: Patient is L-hand dominant. Patients' medical history: Noncontributory. Family and social history: Works in [email or web address]. Pertinent exam findings / vital signs include tenderness and swelling diffusely to the ulnar aspect of the right hand, minimal range of motion and causes pain, sensation intact in both 4th and 5th fingers, no crepitus, no ecchymosis, no anatomical snuffbox tenderness, full range of motion at the wrist. Differential / pathologies of concern include fracture, contusion. Diagnostic studies of: - XR right hand-shows a fourth metacarpal head fracture nondisplaced. Interventions of: - Ulnar gutter splint applied by provider. 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 Findings not consistent with neurovascular compromise, unstable fracture. Disposition of closed fracture of the fourth metacarpal bone of right hand. Patient verbalized understanding of the plan and return to ED criteria and engaged in shared decision making. Medical Records Medical records reviewed: Yes I reviewed the patient's medical records. Imaging Data Radiologic Study: Attestation: I personally reviewed and interpreted this imaging study as follows: Imaging: X-Ray Radiologist's impression: EXAM: XR HAND RT COMPLETE CLINICAL HISTORY: hand injury. TECHNIQUE: 2D digital imaging was performed. Three views. COMPARISON: CR RIGHT HAND COMPLETE from 12/02/2016 FINDINGS: BONES: There is a mildly displaced fracture at the neck of the 4th metacarpal. There is minimal angulation there is slight deformity of the 5th metacarpal, likely related to an old fracture.. No bony destructive lesion is seen. JOINTS: No dislocation present. SOFT TISSUE: Normal. IMPRESSION: Fracture of the 4th metacarpal head. Quality:SDOH Health Related Social Needs: Health related social needs details Not answered PFSH All Active Problems (Updated 11/09/24 @ 16:27 by ANAHI Kelly) Closed fracture of fourth metacarpal bone of right hand (Acute) Plantar fasciitis, left (Acute) Ex-smoker (Acute) Emphysema of lung (Acute) Shortness of breath (Acute) GERD (gastroesophageal reflux disease) (Chronic) Restless leg syndrome (Acute) Tobacco use disorder (Chronic) Started at age 18, 1/2 ppd Medical History Corneal rust ring of right eye Abrasion of cornea, right Eye foreign body Family History Mother Depression Diabetes Hypertension Maternal Grandfather Diabetes Hypertension Paternal Grandfather Heart disease Hypertension Maternal Grandmother Heart disease Hypertension Paternal Grandmother Hypertension Father Hypertension Social History Smoking/Tobacco Use Status: Former Tobacco Use tobacco type: cigarettes Quit Date: 08/18/22 Tobacco: How many years used: 30 Smoking risk assessment performed?: Yes Alcohol Intake: former Drug use: Occasionally Substance use type: marijuana Adopted: No Caregiver/Support person: No Foster care: No Household members: family Housing: apartment Number of Children: 5 number of grandchildren: 4 Communication Needs: Corrective Lenses Education Level: middle school Do you need help understanding health information?: Never current occupation: [employer] Pets and animals: Yes (1 dog, 1 cat, 2 guinea pigs) Pets and animals: cat(s) and dog(s) Sexually active: Yes Do you think of yourself as: straight/heterosexual Current gender identity: male What is your relationship status?: living with partner How often do you talk on the phone with friends or family?: never How often do you get together with friends or relatives?: once per week Do you belong to any clubs or organized social groups?: no Panel score (0-1 are the most socially isolated patients): 1 What type of physical activity do you participate in: walking Duration: 30-45 minutes/day Frequency: 1-2 times per week Rima/Taoist: None Seatbelt use: never Helmet use: Yes Helmet use: always Drive intox or ride w/intox escort vehicle driver: No Do you feel safe at home: Yes Do you feel safe in your relationship?: Yes
[2024-11-09 16:59] VITALS: BP 117/81; PULSE 90; RESP 20; O2SAT 92
== END 2024-11-09 17:00 | disposition home or self-care (01) ==
PROVIDERS: Emergency Provider Physician Assistant; PCP Family Medicine
DX: S62.604A Fracture of unspecified phalanx of right ring finger, initial encounter for closed fracture (principal); W23.0XXA Caught, crushed, jammed, or pinched between moving objects, initial encounter
CPT/HCPCS: 99283 ×2; 29130; 73130

== ENCOUNTER 2024-11-18 14:00 | Outpatient (CLI) | payer OTHER, SELFPAY ==
--- NOTE | 2024-11-18 14:45 | DI.RAD_ITS ---
Exam(s) XR HAND RT COMPLETE EXAM: XR HAND RT COMPLETE CLINICAL HISTORY: F/U FRACTURE. TECHNIQUE: 2D digital imaging was performed. Three views. COMPARISON: CR XR HAND RT COMPLETE from 11/09/2024 FINDINGS: Stable alignment of distal 4th metacarpal fracture. Decreased soft tissue swelling. No new abnormalities. IMPRESSION: Stable alignment of 4th metacarpal fracture. DATA REPOSITORY: RADIATION DOSE DELIVERED:
== END 2024-11-18 14:01 | disposition home or self-care (01) ==
LOC: DIORS 11-19 10:41
PROVIDERS: PCP Family Medicine; Visit Provider Physician Assistant
DX: S62.304A Unspecified fracture of fourth metacarpal bone, right hand, initial encounter for closed fracture (principal)
CPT/HCPCS: 73130

== ENCOUNTER 2024-12-16 15:24 | Outpatient (CLI) | payer BC, SELFPAY ==
--- NOTE | 2024-12-16 13:12 | DI.RAD_ITS ---
Exam(s) XR HAND RT COMPLETE EXAM: XR HAND RT COMPLETE CLINICAL HISTORY: F/U 4TH METACARPAL FX. TECHNIQUE: 2D digital imaging was performed of the right hand. Three images were obtained. AP, lateral and oblique views were obtained. COMPARISON: CR XR HAND RT COMPLETE from 11/18/2024 FINDINGS: BONES: There has been no change in alignment of the fracture involving the 4th metacarpal. Callus formation has developed about the fracture suggesting some interval healing. No new fracture is identified. No bony destructive lesion is seen. JOINTS: No dislocation present. SOFT TISSUE: Normal. IMPRESSION: Stable alignment of the 4th metacarpal fracture. DATA REPOSITORY: RADIATION DOSE DELIVERED:
== END 2024-12-16 15:25 | disposition home or self-care (01) ==
LOC: DIORS 15:24
PROVIDERS: PCP Family Medicine; Visit Provider Student in an Organized Health Care Education/Training Program
DX: S62.304A Unspecified fracture of fourth metacarpal bone, right hand, initial encounter for closed fracture (principal)
CPT/HCPCS: 73130

== ENCOUNTER 2025-02-28 15:28 | Outpatient (CLI) | payer SELFPAY ==
[2025-02-28 15:44] LABS: HCT 43.4 % (40.0-50.0); HGB 14.3 g/dL (13.5-17.5); MCH 28.7 pg (27.0-33.0); MCHC 32.9 % (32.0-36.0); MCV 87 fL (80-95); MPV 9.1 fL (8.0-11.0); Platelet Count 390 10^3/uL (130-400); RBC 4.99 10^6/uL (4.36-5.78); RDW 13.2 % (11.8-14.1); RDW-SD 41.1 fL; WBC 8.18 10^3/uL (4.4-10.8)
[2025-02-28 16:29] LABS: Iron 62 ug/dL (65-175)
[2025-02-28 16:34] LABS: C-Reactive Protein 0.61 mg/dL (<or=0.5)
[2025-03-02 12:17] LABS: Lyme Ab w Rflx to Lyme Confirm Equivocal (Negative)
[2025-03-02 15:14] LABS: Lyme IgG Ab Negative (Negative)
[2025-03-03 22:24] LABS: B. miyamotoi PCR Negative (Negative); Babesia divergens/MO-1 Negative (Negative); Ehrlichia muris eauclairensis Negative (Negative)
== END 2025-02-28 15:29 | disposition home or self-care (01) ==
LOC: LBO 15:29
PROVIDERS: PCP Family Medicine; Visit Provider Family Medicine
DX: G25.81 Restless legs syndrome (principal); M25.562 Pain in left knee; M13.0 Polyarthritis, unspecified
CPT/HCPCS: 36415; 85027; 86200; 86617; 87798; 83540; 86140; 86618